=== PATIENT | female | born 1945 | race Caucasian/White ===

== ENCOUNTER 2022-08-16 19:01 | Inpatient (IN) | payer MEDICARE, SELFPAY ==
[2022-08-16] VITALS (19 sets, daily range): BP systolic 66–165; BP diastolic 37–133; PULSE 75–98; RESP 16–18; TEMP 36.4–36.6; O2SAT 92–97; BMI 30.2; BMI 32.4
--- NOTE | 2022-08-16 19:09 | CRLHL7_ITS ---
For Patients: As a result of the Century Cures Act, medical imaging exams and procedure reports are released immediately into your electronic medical record. You may view this report before your referring provider. If you have questions, please contact your health care provider. INDICATION: Neuro deficits. COMPARISON: None. TECHNIQUE: CT of the head without IV contrast. Coronal and sagittal reconstructions. FINDINGS: There is an age-indeterminate lacunar infarct in the right thalamus (series 3, image 28). No other evidence of acute infarct. No intracranial hemorrhage or abnormal extra-axial fluid collections. No mass effect or midline shift. Normal caliber ventricular system. Mild chronic small vessel ischemic disease. Physiologic basal ganglia calcification. Orbits and extraocular muscles are symmetric. The paranasal sinuses and mastoid air cells are clear. No acute fracture identified. Soft tissues are unremarkable. IMPRESSION: : 1. Age-indeterminate lacunar infarct in the right basal ganglia. This could be further evaluated with MRI. 2. Mild chronic small vessel ischemic disease. 3. Findings discussed with Jony Lr at 7:43 p.m. on 08/16/2022. Please note that all CT scans at this facility use dose modulation, iterative reconstruction, and/or weight-based dosing when appropriate to reduce radiation dose to as low as reasonably achievable. Dictated by Emily Calabrese MD @ 08/16/2022 7:36:26 PM (Electronically Signed)
--- NOTE | 2022-08-16 19:34 | ED_ITS ---
HPI - General Adult General Time Seen by Provider: 19:34 Date Seen: 08/16/22 Chief complaint: Neuro Symptoms/Altered Deficit Stated complaint: Balance Problem Time Seen by Provider: 08/16/22 19:10 Source: patient Mode of arrival: ambulatory Limitations: no limitations History of Present Illness HPI narrative: Patient is a 76-year-old female who is on insulin for diabetes and presents with some dizziness it started last night. She has a little bit lightheaded, has not been sick, no chest pain, no shortness of breath, no headache. Her had a cold. She denies any upper respiratory symptoms, no leg swelling, no edema in the legs no pain in the legs, no weakness focally. She is able to walk but feels a little dizzy at times. She has been eating and drinking adequately. Her blood sugars been reasonable she reports. her vital signs on presentation are unremarkable. As mentioned she denies pain. She was sent to CT because of her neuro complaints promptly and that is pending at this time Related Data Home Medications Medication Instructions Recorded Confirmed insulin glargine U-300 conc 300 unit subcut 08/16/22 unit/mL (1.5 mL) subcutaneous pen (Toujeo SoloStar U-300 Insulin) metformin 1,000 mg tablet 1,000 mg PO BIDWM 08/16/22 08/16/22 Previous Rx's Medication Instructions Recorded atorvastatin 20 mg tablet 20 mg PO .hs #90 tabs 05/29/22 levothyroxine 88 mcg tablet 88 mcg PO DAILY #90 tabs 06/11/22 Allergies Allergy/AdvReac Type Severity Reaction Status Date / Time No Known Drug Allergies Allergy Verified 08/16/22 21:20 Review of Systems Status of ROS: Reports: 10 or more systems reviewed and unremarkable except as noted in History and below [facility] Medical History (Updated 08/16/22 @ 21:39 by Ganesh Cannon MD) Diabetes mellitus Hypothyroidism Poorly controlled diabetes mellitus Surgical History (Updated 08/16/22 @ 21:23 by Ganesh Cannon MD) History of tonsillectomy Social History (Updated 08/16/22 @ 21:33 by Ganesh Cannon MD) Narrative: Patient lives independently with her . She reports no mobility problems normally. She does not smoke. She drinks alcohol about once a week. She has 2 children, 1 who lives nearby. She takes care of her 2-year-old granddaughter. His 2 grandchildren in high school and 2 in college. Her is healthcare power of criminal attorney. Code status is full. Both parents had heart disease. Mom also had cancer of unknown primary. Smoking Status: Never smoker How often do you have a drink containing alcohol: never AUDIT-C Alcohol total score: 0 Non-prescribed substance use: denies use Exam Narrative: Exam Narrative: Objective: Vital signs unremarkable and slightly elevated blood pressure HEENT is unremarkable no facial asymmetry mouth clear tongue protrudes midline neck supple nontender chest is clear heart rhythm regular heart murmur Abdomen benign soft nontender Pelvis stable Upper lower extremities normal strength sensation normal movement Negative nystagmus, pupils equal react to light Const: Vital Signs, click to edit/add: Vital Signs - 24 hr 08/16/22 19:08 08/16/22 20:41 08/16/22 19:24 Temperature 97.5 F L Pulse Rate 93 Pulse Rate [Right Pulse Oximeter] 98 Respiratory Rate 18 Blood Pressure Blood Pressure [Ri ght Upper Arm] 151/94 H Pulse Oximetry 96 95 94 Oxygen Delivery Me thod Room Air 08/16/22 19:25 08/16/22 19:30 08/16/22 19:31 Temperature Pulse Rate 89 90 93 Pulse Rate [Right Pulse Oximeter] Respiratory Rate Blood Pressure 163/133 H 145/102 H Blood Pressure [Ri ght Upper Arm] Pulse Oximetry 94 95 95 Oxygen Delivery Me thod 08/16/22 19:45 08/16/22 19:46 08/16/22 20:02 Temperature Pulse Rate 89 89 81 Pulse Rate [Right Pulse Oximeter] Respiratory Rate Blood Pressure 140/94 H Blood Pressure [Ri ght Upper Arm] Pulse Oximetry 92 93 94 Oxygen Delivery Me thod 08/16/22 20:03 08/16/22 20:04 08/16/22 20:15 Temperature Pulse Rate 86 85 85 Pulse Rate [Right Pulse Oximeter] Respiratory Rate Blood Pressure 66/37 L 165/104 H Blood Pressure [Ri ght Upper Arm] Pulse Oximetry 94 95 93 Oxygen Delivery Me thod 08/16/22 20:19 08/16/22 20:30 08/16/22 20:31 Temperature Pulse Rate 85 86 85 Pulse Rate [Right Pulse Oximeter] Respiratory Rate Blood Pressure 154/100 H Blood Pressure [Ri ght Upper Arm] Pulse Oximetry 94 93 92 Oxygen Delivery Me thod 08/16/22 20:45 08/16/22 20:46 Temperature Pulse Rate 87 80 Pulse Rate [Right Pulse Oximeter] Respiratory Rate Blood Pressure 150/91 H Blood Pressure [Ri ght Upper Arm] Pulse Oximetry 96 95 Oxygen Delivery Me thod Course Vital Signs Vital signs: Initial Vital Signs Temperature 97.5 F L 08/16/22 19:08 Temperature Source Temporal Artery Scan 08/16/22 19:08 Pulse Rate 98 08/16/22 19:08 Respiratory Rate 18 08/16/22 19:08 Blood Pressure 151/94 H 08/16/22 19:08 Blood Pressure Mean 113 08/16/22 19:08 Blood Pressure Position Sitting 08/16/22 19:08 Pulse Oximetry 96 08/16/22 19:08 Oxygen Delivery Method 08/16/22 19:08 Vital Signs Temperature 97.5 F L 08/16/22 19:08 Pulse Rate 98 08/16/22 19:08 Respiratory Rate 18 08/16/22 19:08 Blood Pressure 151/94 H 08/16/22 19:08 Pulse Oximetry 96 08/16/22 19:08 Oxygen Delivery Method 08/16/22 19:08 Temperature 97.9 F 08/16/22 22:23 Pulse Rate 80 08/16/22 22:23 Respiratory Rate 16 08/16/22 22:23 Blood Pressure 159/91 H 08/16/22 22:23 Pulse Oximetry 97 08/16/22 22:23 Oxygen Delivery Method 08/16/22 22:23 Medical Decision Making [facility] Narrative Medical decision making narrative: Patient presents with some dizziness. Will check the head CT, laboratory studies, will also run viral studies. IV fluid, IV Ativan. May have mild laby rinthitis, could have a colder viral infection, [employer] issue. Disposition pending findings above under clinical response Addendum: The patient has a thalamic infarct that is acute or subacute, could b e explaining her symptoms. Will discuss with Stroke Neurology at [facility]. For disposition planning. Addendum: Discussed with Stroke Neurology at [facility] who kindly recommended CT angio head neck common if that looks reasonable then started on Plavix and 81 mg aspirin and admit for echo, MRI MRA tomorrow would be recommended by the neurologist as well Lab Data Labs: Lab Results 08/16/22 08/16/22 08/16/22 Range/Units 19:18 19:18 19:18 WBC 9.00 (4.50-11.00) K/uL RBC 4.68 (4.00-5.20) m/uL Hgb 13.3 (12.0-16.0) gm/dL Hct 42.3 (33.0-51.0) % MCV 90 (80-100) fL MCH 28 (26-34) pg MCHC 31 L (32-36) gm/dL RDW Coeff of [place] 13.5 (11.5-15.5) % Plt Count 322 (140-440) K/uL Neut % (Auto) 56.4 (42.0-72.0) % Lymph % (Auto) 30.1 (20-44) % [place] % (Auto) 7.6 (0.0-11.0) % Eos % (Auto) 5.4 (0.0-7.0) % Baso % (Auto) 0.4 (0.0-3.0) % Neut # (Auto) 5.07 (1.7-7.0) K/uL Lymph # (Auto) 2.71 (0.90-2.90) K/uL [place] # (Auto) 0.70 (0.00-0.90) K/UL Eos # (Auto) 0.49 (0.00-0.50) K/uL Baso # (Auto) 0.04 (0.00-0.30) K/uL Abs Immat Gran (auto) 0.01 (0.00-0.30) K/uL Imm/Tot Granulo (auto) 0.1 % INR (0.91-1.10) Sodium 138 (135-149) mmol/L Potassium 4.3 (3.6-5.1) mmol/L Chloride 103 (96-114) mmol/L Carbon Dioxide 27 (20-32) mmol/L BUN 17 (7-30) mg/dL Creatinine 0.6 (0.5-1.5) mg/dL Estimated Creat Clear 36.68 Estimated GFR 94 ml/min Glucose 262 H (60-115) mg/dL Calcium 9.5 (8.4-10.6) mg/dL Total Bilirubin (0.1-1.5) mg/dL Direct Bilirubin (0.0-0.5) mg/dL AST (12-35) U/L ALT (4-35) U/L Alkaline Phosphatase (40-150) U/L Troponin I (0.01-0.04) ng/mL C-Reactive Protein < 0.5 L (0.5-1.0) mg/dL NT-Pro-B Natriuret Pep (0-450) PG/mL Total Protein (6.0-8.3) g/dL Albumin (3.3-5.0) g/dL Urine Color (Yellow) Urine Appearance (Clear) Urine pH (5.0-8.5) Ur Specific [place] (1.000-1.030) Urine Protein (Negative) Urine Glucose (UA) (Negative) Urine Ketones (Negative) Urine Blood (Negative) Urine Nitrite (Negative) Urine Bilirubin (Negative) Urine Urobilinogen (0.2-1.0) Ur Leukocyte Esterase (Negative) Urine RBC (0-2) Urine WBC (0-5) Ur Squamous Epith Cells (None-Few) Urine Bacteria (None) SARS-CoV-2 (PCR) Negative SARS-CoV-2 (Negative) Influenza Type A (PCR) Cancelled Influenza Type B (PCR) Cancelled RSV (PCR) Cancelled 08/16/22 08/16/22 08/16/22 Range/Units 19:18 19:18 21:18 WBC (4.50-11.00) K/uL RBC (4.00-5.20) m/uL Hgb (12.0-16.0) gm/dL Hct (33.0-51.0) % MCV (80-100) fL MCH (26-34) pg MCHC (32-36) gm/dL RDW Coeff of [place] (11.5-15.5) % Plt Count (140-440) K/uL Neut % (Auto) (42.0-72.0) % Lymph % (Auto) (20-44) % [place] % (Auto) (0.0-11.0) % Eos % (Auto) (0.0-7.0) % Baso % (Auto) (0.0-3.0) % Neut # (Auto) (1.7-7.0) K/uL Lymph # (Auto) (0.90-2.90) K/uL [place] # (Auto) (0.00-0.90) K/UL Eos # (Auto) (0.00-0.50) K/uL Baso # (Auto) (0.00-0.30) K/uL Abs Immat Gran (auto) (0.00-0.30) K/uL Imm/Tot Granulo (auto) % INR 0.94 (0.91-1.10) Sodium (135-149) mmol/L Potassium (3.6-5.1) mmol/L Chloride (96-114) mmol/L Carbon Dioxide (20-32) mmol/L BUN (7-30) mg/dL Creatinine (0.5-1.5) mg/dL Estimated Creat Clear Estimated GFR ml/min Glucose (60-115) mg/dL Calcium (8.4-10.6) mg/dL Total Bilirubin 0.4 (0.1-1.5) mg/dL Direct Bilirubin 0.2 (0.0-0.5) mg/dL AST 25 (12-35) U/L ALT 26 (4-35) U/L Alkaline Phosphatase 85 (40-150) U/L Troponin I < 0.01 L (0.01-0.04) ng/mL C-Reactive Protein (0.5-1.0) mg/dL NT-Pro-B Natriuret Pep 57 (0-450) PG/mL Total Protein 7.3 (6.0-8.3) g/dL Albumin 4.4 (3.3-5.0) g/dL Urine Color Yellow (Yellow) Urine Appearance Clear (Clear) Urine pH 5.5 (5.0-8.5) Ur Specific [place] 1.020 (1.000-1.030) Urine Protein Negative (Negative) Urine Glucose (UA) Trace A (Negative) Urine Ketones Negative (Negative) Urine Blood Negative (Negative) Urine Nitrite Positive A (Negative) Urine Bilirubin Negative (Negative) Urine Urobilinogen 0.2 (0.2-1.0) Ur Leukocyte Esterase Trace A (Negative) Urine RBC 0-2 (0-2) Urine WBC 5-10 A (0-5) Ur Squamous Epith Cells None (None-Few) Urine Bacteria Many A (None) SARS-CoV-2 (PCR) (Negative) Influenza Type A (PCR) Influenza Type B (PCR) RSV (PCR) Discharge Plan Discharge Clinical Impression: Dizziness Patient Disposition: Admitted As Inpatient
[2022-08-16 19:56] LABS: Basophils Absolute Auto 0.04 K/uL (0.00-0.30); Basophils Percent Auto 0.4 % (0.0-3.0); Eosinophils Absolute Auto 0.49 K/uL (0.00-0.50); Eosinophils Percent Auto 5.4 % (0.0-7.0); Hematocrit 42.3 % (33.0-51.0); Hemoglobin* 13.3 gm/dL (12.0-16.0); Immature Granulocytes Abs Auto 0.01 K/uL (0.00-0.30); Immature Granulocytes Pct Auto 0.1 %; Lymphocytes Absolute Auto 2.71 K/uL (0.90-2.90); Lymphocytes Percent Auto 30.1 % (20-44); Mean Corpuscular HGB Conc 31 gm/dL (32-36); Mean Corpuscular Hemoglobin 28 pg (26-34); Mean Corpuscular Volume 90 fL (80-100); Monocytes Percent Auto 7.6 % (0.0-11.0); Neutrophils Absolute Auto 5.07 K/uL (1.7-7.0); Neutrophils Percent Auto 56.4 % (42.0-72.0); Platelet Count* 322 K/uL (140-440); RDW Coefficient of Variation % 13.5 % (11.5-15.5); Red Blood Count 4.68 m/uL (4.00-5.20)
[2022-08-16 19:57] LABS: Slide Review Reflex No
[2022-08-16] MEDS: LORazepam 2 MG/ML inj 0.5 MG IVP (20:03)
[2022-08-16] MEDS: 0.9 % SODIUM CHLORIDE 500 ML 500 ML IV (20:04)
[2022-08-16 20:08] LABS: Albumin* 4.4 g/dL (3.3-5.0)
[2022-08-16 20:09] LABS: Chloride* 103 mmol/L (96-114); Potassium* 4.3 mmol/L (3.6-5.1); Sodium* 138 mmol/L (135-149)
[2022-08-16 20:11] LABS: Aspartate Amino Transferase* 25 U/L (12-35); Bilirubin Direct* 0.2 mg/dL (0.0-0.5); Bilirubin Total* 0.4 mg/dL (0.1-1.5); Total Protein* 7.3 g/dL (6.0-8.3)
[2022-08-16 20:12] LABS: Alanine Aminotransferase* 26 U/L (4-35); Creatinine* 0.6 mg/dL (0.5-1.5); Est. Creatinine Clearance* 36.68; Estimated Glomerular Filt Rate 94 ml/min; INR 0.94 (0.91-1.10); Prothrombin Time 13.2 Seconds
[2022-08-16 20:13] LABS: Alkaline Phosphatase* 85 U/L (40-150); Blood Urea Nitrogen* 17 mg/dL (7-30); Calcium* 9.5 mg/dL (8.4-10.6); Carbon Dioxide* 27 mmol/L (20-32); Glucose* 262 mg/dL (60-115)
[2022-08-16 20:20] LABS: C Reactive Protein* < 0.5 mg/dL (0.5-1.0)
[2022-08-16 20:21] LABS: NT Pro B Type NatriureticPept* 57 PG/mL (0-450)
[2022-08-16 20:24] LABS: Troponin I* < 0.01 ng/mL (0.01-0.04)
[2022-08-16 20:35] LABS: SARS PCR* Negative SARS-CoV-2 (Negative)
--- NOTE | 2022-08-16 20:44 | CRLHL7_ITS ---
For Patients: As a result of the Century Cures Act, medical imaging exams and procedure reports are released immediately into your electronic medical record. You may view this report before your referring provider. If you have questions, please contact your health care provider. DATE: 08/16/2022 CLINICAL HISTORY: Patient with focal neurological deficits. TECHNIQUE: Standard helical CT image acquisition of the neck up to the skull base after bolus intravenous contrast enhancement. Multiplanar reconstructed images performed on a separate workstation. COMPARISON: CT same day. FINDINGS: The origins of the great vessels from the aortic arch are patent. The origin of the right vertebral artery is patent. The origin of the left vertebral artery is patent. The common carotid arteries are patent. There is no stenosis at the origin of the right internal carotid artery. There is no stenosis at the origin of the left internal carotid artery. The rest of the cervical segments of the internal carotid arteries are patent up to the skull base, being patulous. The vertebral arteries are codominant. The cervical segments of the vertebral arteries are patent up to the skull base. The visualized lung apices are unremarkable. The thyroid gland is unremarkable. The soft tissues of the neck are unremarkable. There are degenerative changes in the cervical spine. IMPRESSION: Normal CT angiogram of the neck. Please note that all CT scans at this facility use dose modulation, iterative reconstruction, and/or weight-based dosing when appropriate to reduce radiation dose to as low as reasonably achievable. Dictated by Riley Thakur MD @ 08/16/2022 9:53:14 PM (Electronically Signed)
--- NOTE | 2022-08-16 20:44 | CRLHL7_ITS ---
For Patients: As a result of the Century Cures Act, medical imaging exams and procedure reports are released immediately into your electronic medical record. You may view this report before your referring provider. If you have questions, please contact your health care provider. DATE: 08/16/2022 CLINICAL HISTORY: Patient with focal neurological deficits. TECHNIQUE: Standard helical CT image acquisition through the intracranial circulation following intravenous administration of contrast material with bolus tracking. Multiplanar reconstructed images were performed and interpreted. COMPARISON: CT same day. FINDINGS: There is no cerebral aneurysm or large vessel occlusion. The right internal carotid artery is normal. The right middle cerebral artery and its branches are normal. The right anterior cerebral artery and its branches are normal. The left internal carotid artery is normal. The left middle cerebral artery and its branches are normal. The left anterior cerebral artery and its branches are normal. The anterior communicating artery is well visualized and appears normal. The right vertebral artery and PICA are normal. The left vertebral artery and PICA are normal. The vertebral arteries are codominant. The basilar artery is patent and appears normal. The right posterior cerebral artery is normal. The left posterior cerebral artery is normal. The visualized venous structures are patent. IMPRESSION: Normal CT angiogram of the head without intracranial aneurysm or other neurovascular abnormality. Please note that all CT scans at this facility use dose modulation, iterative reconstruction, and/or weight-based dosing when appropriate to reduce radiation dose to as low as reasonably achievable. Dictated by Riley Thakur MD @ 08/16/2022 9:51:01 PM (Electronically Signed)
--- NOTE | 2022-08-16 21:12 | P.IMHP_ITS ---
Hospitalist- H&P: HPI History of Present Illness Date Seen: 08/16/22 Chief complaint: Balance Problem Narrative: Jeanne Rosado is a left-handed 76 year old female with diabetes admitted through the emergency department with 1 day history of poor balance. Last evening around 9:00 p.m. she had onset of difficulty walking. She noted her balance is very poor and she had to hold onto furniture and the loco. She went to the bathroom and did have a fall in the bathroom but had no injury. She reports that she feels like her left hand is somewhat clumsy and she notes that her speech is halting. Her thinks she is slurring speech a little bit. She is otherwise feeling well. The problem persisted till today so she presents to the emergency room for evaluation. Here she also reports that she had trouble signing paperwork with her left hand. No previous history of stroke, atrial fibrillation, bleeding problems or clotting problems. She reports no recent illness, fever, head injury, shortness of breath, chest pain, abdominal pain, nausea, vomiting, diarrhea, constipation, melanotic or bloody stools. No urinary problems. Review of Systems Narrative: She reports doing well up until this episode occurred. She does have chronic upper respiratory symptoms including cough and congestion. She tells me he has been going on for months. I do note that in January she was rep orting the symptoms as well during a clinic visit. She has declined COVID vaccination. Complete review of systems otherwise unremarkable [facility] Medical History (Updated 08/16/22 @ 21:39 by Ganesh Cannon MD) Diabetes mellitus Hypothyroidism Poorly controlled diabetes mellitus Surgical History (Updated 08/16/22 @ 21:23 by Ganesh Cannon MD) History of tonsillectomy Social History (Updated 08/16/22 @ 21:33 by Ganesh Cannon MD) Narrative: Patient lives independently with her . She reports no mobility problems normally. She does not smoke. She drinks alcohol about once a week. She has 2 children, 1 who lives nearby. She takes care of her 2-year-old granddaughter. His 2 grandchildren in high school and 2 in college. Her is healthcare power of criminal defense attorney. Code status is full. Both parents had heart disease. Mom also had cancer of unknown primary. Smoking Status: Never smoker How often do you have a drink containing alcohol: never AUDIT-C Alcohol total score: 0 Non-prescribed substance use: denies use Meds Home Medications and Allergies Home Medications Medication Instructions Recorded Confirmed Type insulin glargine U-300 conc 300 unit subcut 08/16/22 History unit/mL (1.5 mL) subcutaneous pen (Toujeo SoloStar U-300 Insulin) metformin 1,000 mg tablet 1,000 mg PO BIDWM 08/16/22 08/16/22 History Allergies Allergy/AdvReac Type Severity Reaction Status Date / Time No Known Drug Allergies Allergy Verified 08/16/22 21:20 Exam Narrative: Exam Narrative: She is alert and appears in no distress. Her speech is fluent though slow. Is not obvious to me that she is slurring her speech. She is somewhat hard of hearing. She is oriented to her circumstances and gives appropriate answers to questions corroborated by her . Head is without apparent trauma. Eyes are normal. Visual ontiveros are intact. Extraocular movements are full. Pupils are equal round reactive to light. Oropharynx is normal. No facial asymmetry. Tongue is midline. Intact sensation in her face. Neck is supple without mass or adenopathy. No tenderness. Respirations are clear to auscultation. Good air exchange in all lung ontiveros. Cardiovascular: S1, S2, regular rate and rhythm. No murmur gallop or rub. Abdomen: Bowel sounds active. Abdomen is soft without tenderness or mass. Neuro extremities: 5/5 strength bilaterally in upper and lower extremities including shoulder flexion extension, elbow flexion extension, wrist flexion extension, finger extension and electrical prospector strength. Also including hip flexion, knee flexion extension, ankle dorsiflexion and p lantar flexion and great toe dorsiflexion. [id number] is somewhat slower and more clumsy on the left hand than the right. Rapid finger movements are relatively symmetric in both hands. Const: Vital Signs, click to edit/add: Vital Signs - 24 hr 08/16/22 19:08 08/16/22 20:41 08/16/22 19:24 Temperature 97.5 F L Pulse Rate 93 Pulse Rate [Right Pulse Oximeter] 98 Respiratory Rate 18 Blood Pressure Blood Pressure [Ri ght Upper Arm] 151/94 H Pulse Oximetry 96 95 94 Oxygen Delivery Me thod Room Air 08/16/22 19:25 08/16/22 19:30 08/16/22 19:31 Temperature Pulse Rate 89 90 93 Pulse Rate [Right Pulse Oximeter] Respiratory Rate Blood Pressure 163/133 H 145/102 H Blood Pressure [Ri ght Upper Arm] Pulse Oximetry 94 95 95 Oxygen Delivery Me thod 08/16/22 19:45 08/16/22 19:46 08/16/22 20:02 Temperature Pulse Rate 89 89 81 Pulse Rate [Right Pulse Oximeter] Respiratory Rate Blood Pressure 140/94 H Blood Pressure [Ri ght Upper Arm] Pulse Oximetry 92 93 94 Oxygen Delivery Me thod 08/16/22 20:03 08/16/22 20:04 08/16/22 20:15 Temperature Pulse Rate 86 85 85 Pulse Rate [Right Pulse Oximeter] Respiratory Rate Blood Pressure 66/37 L 165/104 H Blood Pressure [Ri ght Upper Arm] Pulse Oximetry 94 95 93 Oxygen Delivery Me thod 08/16/22 20:19 08/16/22 20:30 08/16/22 20:31 Temperature Pulse Rate 85 86 85 Pulse Rate [Right Pulse Oximeter] Respiratory Rate Blood Pressure 154/100 H Blood Pressure [Ri ght Upper Arm] Pulse Oximetry 94 93 92 Oxygen Delivery Me thod 08/16/22 20:45 08/16/22 20:46 Temperature Pulse Rate 87 80 Pulse Rate [Right Pulse Oximeter] Respiratory Rate Blood Pressure 150/91 H Blood Pressure [Ri ght Upper Arm] Pulse Oximetry 96 95 Oxygen Delivery Me thod Documenting provider has reviewed patient's vital signs: yes Hospitalist - H&P: Result Labs Labs: Short CBC 08/16/22 Range/Units 19:18 WBC 9.00 (4.50-11.00) K/uL Hgb 13.3 (12.0-16.0) gm/dL Hct 42.3 (33.0-51.0) % Plt Count 322 (140-440) K/uL BMP 08/16/22 19:18 Sodium 138 Potassium 4.3 Chloride 103 Carbon Dioxide 27 BUN 17 Creatinine 0.6 Glucose 262 H Calcium 9.5 Cardiac Enzymes 08/16/22 Range/Units 19:18 Troponin I < 0.01 L (0.01-0.04) ng/mL Liver Function 08/16/22 Range/Units 19:18 Total Bilirubin 0.4 (0.1-1.5) mg/dL Direct Bilirubin 0.2 (0.0-0.5) mg/dL AST 25 (12-35) U/L ALT 26 (4-35) U/L Alkaline Phosphatase 85 (40-150) U/L Albumin 4.4 (3.3-5.0) g/dL Assessment and Plan Assessment and plan (1) Stroke of right basal ganglia: Problem comment: Symptoms are consistent with right basal ganglia stroke with onset about [address] findings of indeterminate age. Obtain CTA and MRI. Cardiac monitoring for AFib. TTE for embolic source evaluation. Initiate aspirin. Continue management of diabetes and other chronic medical problems. Permissive hypertension. Status: Acute (2) Poorly controlled diabetes mellitus: Status: Acute Assessment and Plan: Admit to the hospital for evaluation and treatment of stroke, rehab. Total time spent today is 70 minutes, 50 minutes in coordination of care and discussing with patient, , other providers evaluation management of stroke
[2022-08-16 21:26] LABS: Appearance Urine Clear (Clear); Bilirubin Urine Negative (Negative); Blood Urine Negative (Negative); Color Urine Yellow (Yellow); Glucose Urine Trace (Negative); Ketones Urine Negative (Negative); Leukocyte Esterase Urine Trace (Negative); Nitrite Urine Positive (Negative); Protein Urine Negative (Negative); Urobilinogen Urine 0.2 (0.2-1.0); pH Urine 5.5 (5.0-8.5)
[2022-08-16 21:34] LABS: Bacteria Urine Many; RBC Urine 0-2 (0-2)
[2022-08-16] MEDS: ASPIRIN 81 MG TAB.CHEW 324 MG PO (22:04)
[2022-08-16] MEDS: ATORVASTATIN 10 MG TABLET 20 MG PO (22:04)
[2022-08-17] VITALS (7 sets, daily range): BP systolic 116–136; BP diastolic 76–89; PULSE 68–104; RESP 16–18; TEMP 36.6–37.2; O2SAT 92–95
--- NOTE | 2022-08-17 05:32 | PC.NURSE ---
Shift note: While assessing strength in bed all four extremities are equally strong. When pt gets up there is a left foot drop. She tends to move to the right, with no awareness of the things on the left side. Gait is extremely unsteady, assist of 1 with walker and belt. Pt needs frequent instructions for directions, instructions have to be direct and short, otherwise pt does not follow commands, or has a delay respond. RN needs to repeat questions/statements for pt to understand.
--- NOTE | 2022-08-17 07:00 | CRLHL7_ITS ---
For Patients: As a result of the Century Cures Act, medical imaging exams and procedure reports are released immediately into your electronic medical record. You may view this report before your referring provider. If you have questions, please contact your health care provider. Indication: Stroke. Technique: Multiplanar, multisequence MRI of the brain was performed without intravenous contrast. Comparison: CT head 08/16/2022. Findings: Mildly of the corpus callosum. Partly empty sella morphology. Clivus is intact. Mild degenerative change visualize upper cervical spine. There is an 11 mm focus of restricted diffusion involving the right thalamus. There is associated T2 FLAIR hyperintensity. The ventricles are proportionate to the cerebral sulci. The 4th ventricle appears midline. The basal cisterns appear patent. No abnormal extra-axial fluid collection identified. Mild parenchymal volume loss. Scattered T2 FLAIR hyperintense foci within the subcortical and periventricular white matter, favored to represent chronic ischemic microvascular disease. There is no intracranial mass, abnormal mass-effect or midline shift identified. Major intracranial vascular flow voids appear grossly intact. Both bilateral pseudophakia. Mild paranasal sinus mucosal disease. Impression: 1. Small acute/subacute right thalamic infarct. 2. Mild chronic ischemic microvascular disease. Dictated by Fredy Clark MD @ 08/17/2022 12:24:21 PM (Electronically Signed)
--- NOTE | 2022-08-17 08:56 | PM.IMPN1 ---
Progress Note: A&P Assessment and plan (1) Stroke of right basal ganglia: Problem details: Symptoms are consistent with right basal ganglia stroke with onset about [address] findings of indeterminate age. Status: Acute Assessment and Plan: MRI scheduled for today. TTE looking for embolic source scheduled today. No atrial fibrillation seen on telemetry, continue cardiac monitoring. Continue permissive hypertension for 72 hours total. PT and OT evaluations today. I have also ordered a speech evaluation due to facial droop and difficulty with tongue movement. (2) Dizziness: Status: Acute (3) Hyperlipidemia: Problem details: 03/26/2022 triglycerides 188, total cholesterol 183, LDL 96, HDL 49 Status: Chronic Assessment and Plan: Continue atorvastatin. (4) Ataxia due to acute cerebrovascular disease: Status: Acute (5) Poorly controlled diabetes mellitus: Problem details: Hemoglobin A1c 03/26/2022 is 10.2 Status: Acute (6) Diabetes mellitus: Problem details: Hemoglobin A1c 03/26/2022 is 10.2 Status: Chronic Assessment and Plan: Blood glucoses are close to inpatient goal of 140s to 180s. Continue long-acting insulin. Continue diabetic diet and insulin sliding scale. Plan VTE prophylaxis with nightly enoxaparin and Jeet's hose. Will avoid SCDs due to occasional confusion which may increase the risk of fall with SCDs. Disposition: Suspect she may need a brief stay at a intermediate facility for rehab. Await recommendations from PT and OT today. Subjective Time Seen by Provider: 08:13 Date Seen: 08/17/22 Interval history: Lindsey feels better this morning. She notes that she slept well. Nurse notes that Jeanne got up on her own to try to use the bathroom, but did need some assistance because she still has ataxia to the right and left footdrop. Left-sided neglect, confusion, and difficulty processing directions are better this morning. Exam Narrative: Exam Narrative: General: No acute distress. Awake, alert, oriented to self and place. No pallor. No jaundice. Oropharynx: Clear. Mucous membranes moist. Cardiovascular: Regular rate and rhythm. No murmurs, gallops, or rubs. Respiratory: Clear to auscultation bilaterally. No wheezes or crackles. Abdomen: Bowel sounds present. Soft, nondistended, nontender. Neuro: Left pronator drift is present. Gait is unsteady with ataxia to the right. Cranial nerves 2-12 are intact although she had some clumsiness initially with moving her tongue side to side, but then was able to make these movements smoothly 2nd time I asked her to do it. Tongue is midline. Extraocular movements are full. No nystagmus. Left lower facial droop is present. Peripheral vision and vision are grossly intact. Strength is 5/5 in all 4 extremities. DTRs intact and symmetric. Light touch sensation is intact in face body and extremities. Clumsiness with left [id number] test. No difficulty or clumsiness with right finger to nose test or bilateral heel to bonilla test. Const: Vital Signs, click to edit/add: Vital Signs - 24 hr 08/16/22 19:08 08/16/22 20:41 08/16/22 19:24 Temperature 97.5 F L Pulse Rate 93 Pulse Rate [Left P ulse Oximeter] Pulse Rate [Right Pulse Oximeter] 98 Respiratory Rate 18 Blood Pressure Blood Pressure [Le ft Arm] Blood Pressure [Ri ght Upper Arm] 151/94 H Pulse Oximetry 96 95 94 Oxygen Delivery Me od Room Air 08/16/22 19:25 08/16/22 19:30 08/16/22 19:31 Temperature Pulse Rate 89 90 93 Pulse Rate [Left P ulse Oximeter] Pulse Rate [Right Pulse Oximeter] Respiratory Rate Blood Pressure 163/133 H 145/102 H Blood Pressure [Le ft Arm] Blood Pressure [Ri ght Upper Arm] Pulse Oximetry 94 95 95 Oxygen Delivery Me thod 08/16/22 19:45 08/16/22 19:46 08/16/22 20:02 Temperature Pulse Rate 89 89 81 Pulse Rate [Left P ulse Oximeter] Pulse Rate [Right Pulse Oximeter] Respiratory Rate Blood Pressure 140/94 H Blood Pressure [Le ft Arm] Blood Pressure [Ri ght Upper Arm] Pulse Oximetry 92 93 94 Oxygen Delivery Me thod 08/16/22 20:03 08/16/22 20:04 08/16/22 20:15 Temperature Pulse Rate 86 85 85 Pulse Rate [Left P ulse Oximeter] Pulse Rate [Right Pulse Oximeter] Respiratory Rate Blood Pressure 66/37 L 165/104 H Blood Pressure [Le ft Arm] Blood Pressure [Ri ght Upper Arm] Pulse Oximetry 94 95 93 [facility] 08/16/22 20:19 08/16/22 20:30 08/16/22 20:31 Temperature Pulse Rate 85 86 85 Pulse Rate [Left P ulse Oximeter] Pulse Rate [Right Pulse Oximeter] Respiratory Rate Blood Pressure 154/100 H Blood Pressure [Le ft Arm] Blood Pressure [Ri ght Upper Arm] Pulse Oximetry 94 93 92 Oxygen Delivery Me thod 08/16/22 20:45 08/16/22 20:46 08/16/22 22:23 Temperature 97.9 F Pulse Rate 87 80 Pulse Rate [Left P ulse Oximeter] 80 Pulse Rate [Right Pulse Oximeter] Respiratory Rate 16 Blood Pressure 150/91 H Blood Pressure [Le ft Arm] 159/91 H Blood Pressure [Ri ght Upper Arm] Pulse Oximetry 96 95 97 Oxygen Delivery Me thod Room Air 08/16/22 23:00 08/16/22 23:00 08/17/22 03:00 Temperature 98 F 98.2 F Pulse Rate 79 Pulse Rate [Left P ulse Oximeter] 75 73 Pulse Rate [Right Pulse Oximeter] Respiratory Rate 16 18 Blood Pressure Blood Pressure [Le ft Arm] 145/88 H 134/83 Blood Pressure [Ri ght Upper Arm] Pulse Oximetry 94 94 Oxygen Delivery Me thod Room Air Room Air 08/17/22 07:00 Temperature Pulse Rate 68 Pulse Rate [Left P ulse Oximeter] Pulse Rate [Right Pulse Oximeter] Respiratory Rate Blood Pressure Blood Pressure [Le ft Arm] Blood Pressure [Ri ght Upper Arm] Pulse Oximetry Oxygen Delivery Me thod Documenting provider has reviewed patient's vital signs: yes Labs Labs: Laboratory Results - last 24 hr 08/16/22 08/16/22 08/16/22 19:18 19:18 19:18 WBC 9.00 RBC 4.68 Hgb 13.3 Hct 42.3 MCV 90 MCH 28 MCHC 31 L RDW Coeff of [place] 13.5 Plt Count 322 Neut % (Auto) 56.4 Lymph % (Auto) 30.1 Esmeralda % (Auto) 7.6 Eos % (Auto) 5.4 Baso % (Auto) 0.4 Neut # (Auto) 5.07 Lymph # (Auto) 2.71 Esmeralda # (Auto) 0.70 Eos # (Auto) 0.49 Baso # (Auto) 0.04 Abs Immat Gran (auto) 0.01 Imm/Tot Granulo (auto) 0.1 INR Sodium 138 Potassium 4.3 Chloride 103 Carbon Dioxide 27 BUN 17 Creatinine 0.6 Estimated Creat Clear 36.68 Estimated GFR 94 Glucose 262 H Calcium 9.5 Total Bilirubin Direct Bilirubin AST ALT Alkaline Phosphatase Troponin I C-Reactive Protein < 0.5 L NT-Pro-B Natriuret Pep Total Protein Albumin Urine Color Urine Appearance Urine pH Ur Specific [place] Urine Protein Urine Glucose (UA) Urine Ketones Urine Blood Urine Nitrite Urine Bilirubin Urine Urobilinogen Ur Leukocyte Esterase Urine RBC Urine WBC Ur Squamous Epith Cells Urine Bacteria SARS-CoV-2 (PCR) Negative SARS-CoV-2 Influenza Type A (PCR) Cancelled Influenza Type B (PCR) Cancelled RSV (PCR) Cancelled 08/16/22 08/16/22 08/16/22 19:18 19:18 21:18 WBC RBC Hgb Hct MCV MCH MCHC RDW Coeff of [place] Plt Count Neut % (Auto) Lymph % (Auto) Esmeralda % (Auto) Eos % (Auto) Baso % (Auto) Neut # (Auto) Lymph # (Auto) Esmeralda # (Auto) Eos # (Auto) Baso # (Auto) Abs Immat Gran (auto) Imm/Tot Granulo (auto) INR 0.94 Sodium Potassium Chloride Carbon Dioxide BUN Creatinine Estimated Creat Clear Estimated GFR Glucose Calcium Total Bilirubin 0.4 Direct Bilirubin 0.2 AST 25 ALT 26 Alkaline Phosphatase 85 Troponin I < 0.01 L C-Reactive Protein NT-Pro-B Natriuret Pep 57 Total Protein 7.3 Albumin 4.4 Urine Color Yellow Urine Appearance Clear Urine pH 5.5 Ur Specific [place] 1.020 Urine Protein Negative Urine Glucose (UA) Trace A Urine Ketones Negative Urine Blood Negative Urine Nitrite Positive A Urine Bilirubin Negative Urine Urobilinogen 0.2 Ur Leukocyte Esterase Trace A Urine RBC 0-2 Urine WBC 5-10 A Ur Squamous Epith Cells None Urine Bacteria Many A SARS-CoV-2 (PCR) Influenza Type A (PCR) Influenza Type B (PCR) RSV (PCR) Ordering Physician: Jade Betancourt MD Date of Service: 08/16/22 Procedure(s): CT head/brain wo con Accession Number(s): [id number] cc: Jade Betancourt MD; Isabella Bacon M.D.~ For Patients: As a result of the Cures Act, medical imaging exams and procedure reports are released immediately into your electronic medical record. You may view this report before your referring provider. If you have questions, please contact your health care provider. INDICATION: Neuro deficits. COMPARISON: None. TECHNIQUE: CT of the head without IV contrast. Coronal and sagittal reconstructions. FINDINGS: There is an age-indeterminate lacunar infarct in the right thalamus (series 3, image 28). No other evidence of acute infarct. No intracranial hemorrhage or abnormal extra-axial fluid collections. No mass effect or midline shift. Normal caliber ventricular system. Mild chronic small vessel ischemic disease. Physiologic basal ganglia calcification. Orbits and extraocular muscles are symmetric. The paranasal sinuses and mastoid air cells are clear. No acute fracture identified. Soft tissues are unremarkable. IMPRESSION: : 1. Age-indeterminate lacunar infarct in the right basal ganglia. This could be further evaluated with MRI. 2. Mild chronic small vessel ischemic disease. 3. Findings discussed with Jony Lr at 7:43 p.m. on 08/16/2022. Please note that all CT scans at this facility use dose modulation, iterative reconstruction, and/or weight-based dosing when appropriate to reduce radiation dose to as low as reasonably achievable. Dictated by Emily Calabrese MD @ 08/16/2022 7:36:26 PM (Electronically Signed) Ordering Physician: Jony Lr M.D. Date of Service: 08/16/22 Procedure(s): CT angio head Accession Number(s): [id number] cc: Jony Lr M.D.; Isabella Bacon M.D.~ For Patients: As a result of the Cures Act, medical imaging exams and procedure reports are released immediately into your electronic medical record. You may view this report before your referring provider. If you have questions, please contact your health care provider. DATE: 08/16/2022 CLINICAL HISTORY: Patient with focal neurological deficits. TECHNIQUE: Standard helical CT image acquisition through the intracranial circulation following intravenous administration of contrast material with bolus tracking. Multiplanar reconstructed images were performed and interpreted. COMPARISON: CT same day. FINDINGS: There is no cerebral aneurysm or large vessel occlusion. The right internal carotid artery is normal. The right middle cerebral artery and its branches are normal. The right anterior cerebral artery and its branches are normal. The left internal carotid artery is normal. The left middle cerebral artery and its branches are normal. The left anterior cerebral artery and its branches are normal. The anterior communicating artery is well visualized and appears normal. The right vertebral artery and PICA are normal. The left vertebral artery and PICA are normal. The vertebral arteries are codominant. The basilar artery is patent and appears normal. The right posterior cerebral artery is normal. The left posterior cerebral artery is normal. The visualized venous structures are patent. IMPRESSION: Normal CT angiogram of the head without intracranial aneurysm or other neurovascular abnormality. Please note that all CT scans at this facility use dose modulation, iterative reconstruction, and/or weight-based dosing when appropriate to reduce radiation dose to as low as reasonably achievable. Dictated by Riley Thakur MD @ 08/16/2022 9:51:01 PM (Electronically Signed) Ordering Physician: Jony Lr M.D. Date of Service: 08/16/22 Procedure(s): CT angio neck Accession Number(s): [id number] cc: Jony Lr M.D.; Isabella Bacon M.D.~ For Patients: As a result of the Cures Act, medical imaging exams and procedure reports are released immediately into your electronic medical record. You may view this report before your referring provider. If you have questions, please contact your health care provider. DATE: 08/16/2022 CLINICAL HISTORY: Patient with focal neurological deficits. TECHNIQUE: Standard helical CT image acquisition of the neck up to the skull base after bolus intravenous contrast enhancement. Multiplanar reconstructed images performed on a separate workstation. COMPARISON: CT same day. FINDINGS: The origins of the great vessels from the aortic arch are patent. The origin of the right vertebral artery is patent. The origin of the left vertebral artery is patent. The common carotid arteries are patent. There is no stenosis at the origin of the right internal carotid artery. There is no stenosis at the origin of the left internal carotid artery. The rest of the cervical segments of the internal carotid arteries are patent up to the skull base, being patulous. The vertebral arteries are codominant. The cervical segments of the vertebral arteries are patent up to the skull base. The visualized lung apices are unremarkable. The thyroid gland is unremarkable. The soft tissues of the neck are unremarkable. There are degenerative changes in the cervical spine. IMPRESSION: Normal CT angiogram of the neck. Please note that all CT scans at this facility use dose modulation, iterative reconstruction, and/or weight-based dosing when appropriate to reduce radiation dose to as low as reasonably achievable. Dictated by Riley Thakur MD @ 08/16/2022 9:53:14 PM (Electronically Signed)
[2022-08-17] MEDS: ASPIRIN 81 MG TABLET EC PO (08:57)
[2022-08-17] MEDS: METFORMIN 1,000 MG TABLET 1000 MG PO ×2 (08:57→17:51)
[2022-08-17] MEDS: LEVOTHYROXINE 88 MCG TABLET PO (08:57)
--- NOTE | 2022-08-17 11:50 | PC.NURSE ---
Pt evaluated by Dr. Winter and myself this am. Pt evaluated by Dinorah for risk of swallowing issues at [facility]. PT eval and OT eval completed. Pt taken for MRI at 11:00 am via w/c. RN updated pt's spouse via phone on his 's status. BG prior to bkfst 101, no SS insulin required. Please see eMar for medications given during am med pass. Continue POC for post ischemic stroke. Plan echocardiogram later this afternoon.
--- NOTE | 2022-08-17 12:22 | PC.NURSE ---
Care of this patient transferred to Rin Dorsey RN. BG [phone] prior to lunch.
--- NOTE | 2022-08-17 14:34 | PC.SOCIAL ---
Met with pt. and spouse to discuss discharge plans. PT, OT, and speech therapy all think pt. would benefit from an acute rehab stay. Discussed there was acute rehab options at [facility], [facility], and [place]. Pt. an spouse would like to look at [facility], and [facility] for acute rehab. A message was left with Paul Toure/ @ [phone], fax# [phone] and pt.'s information was sent to [facility]. Pt.'s other information was also sent to [facility] at [phone], .
--- NOTE | 2022-08-17 15:38 | PC.NURSE ---
shift note: pt tolerating regular diet. pt denies pain.
[2022-08-17] MEDS: ACETAMINOPHEN 325 MG TABLET 650 MG PO ×2 (15:59→22:04)
[2022-08-17] MEDS: ATORVASTATIN 10 MG TABLET 20 MG PO (20:58)
[2022-08-17] MEDS: SODIUM CHLORIDE 0.9 % (FLUSH) 10 ML SYRINGE 5 ML IVF (20:58)
[2022-08-17] MEDS: ENOXAPARIN 40 MG/0.4 ML INJ SUBCUT (20:58)
--- NOTE | 2022-08-17 22:21 | PC.NURSE ---
End of Shift: Patient pleasant and cooperative. Afebrile. Up to chair and bathroom with 1-2 assist, walker and gait belt. Unsteady gait. Tolerating regular diet with no nausea. C/o headache 2-5/10 and PRN Tylenol given x2, updated MD. Tele showing NSR with a 1st degree heart block.
[2022-08-18 03:00] VITALS: BP 150/83; PULSE 76; RESP 16; TEMP 36.6; O2SAT 92
--- NOTE | 2022-08-18 05:20 | PC.NURSE ---
Shift note: Pt's condition stable. No new s/s noted except general weakness. V/s WNL. Pt has been sleeping very well, denied any pain or discomfort such as dizziness or headache.Tolerate regular diet very well.
[2022-08-18] MEDS: LEVOTHYROXINE 88 MCG TABLET PO (06:37)
[2022-08-18 07:00] VITALS: BP 126/89; PULSE 82; PULSE 87; RESP 16; TEMP 36.9; O2SAT 93
[2022-08-18] MEDS: ASPIRIN 81 MG TABLET EC PO (08:51)
[2022-08-18] MEDS: METFORMIN 1,000 MG TABLET 1000 MG PO ×2 (08:51→17:18)
[2022-08-18] MEDS: CLOPIDOGREL 75 MG TABLET PO (08:51)
[2022-08-18 11:00] VITALS: BP 150/62; PULSE 68; RESP 16; TEMP 36.6; O2SAT 96
--- NOTE | 2022-08-18 12:15 | REH.OT ---
OT ADL assesment; Pt currently requires Min Ax1 for safe toileting, specifically with clothing management as she has had LOB x3 today due to leaning to the L side unknowingly and unable to self correct. Pt is SBA for standing grooming tasks at sink but requires frequent physical/verbal cues to return to midline as she leans to the L and lacks self awareness.. Pt has difficulty with dynamic sitting balance without supports (EOB) and requires Min Ax1 to remain upright due to L sided and backward leaning when BUE are unable to support posture. Pt is able to complete UE/ partial LE dressing while seated in recliner but requires SBA and verbal cues when standing to pull pants up to prevent LOB. Pt would benefit from continued rehab services to work on balance during toileting and ADL completion to prevent falls and further injury.
--- NOTE | 2022-08-18 13:25 | PM.IMPN1 ---
Progress Note: A&P Assessment and plan (1) Stroke of right basal ganglia: Problem details: acute/subacute right thalamic stroke on MRI 08/17/2022. Stroke neurology ([place]) recommended lifelong baby aspirin daily and 30 days of Plavix Status: Acute Assessment and Plan: Aspirin and plavix as above. Continue statin. TTE done yesterday. Continue permissive hypertension for 72 hours total. Does not have known h/o HTN, but suspect this is present and may need to start antihypertensive as an outpatient. Continue PT/OT and speech therapy. (2) Dizziness: Problem details: secondary to stroke Status: Acute (3) Hyperlipidemia: Problem details: 03/26/2022 triglycerides 188, total cholesterol 183, LDL 96, HDL 49 Status: Chronic Assessment and Plan: Continue atorvastatin. (4) Ataxia due to acute cerebrovascular disease: Status: Acute Assessment and Plan: PT/OT (5) Poorly controlled diabetes mellitus: Problem details: Hemoglobin A1c 03/26/2022 is 10.2 Status: Acute (6) Diabetes mellitus: Problem details: Hemoglobin A1c 03/26/2022 is 10.2 Status: Chronic Assessment and Plan: Blood glucoses are close to inpatient goal of 140s to 180s. Continue long-acting insulin. Continue diabetic diet and insulin sliding scale. (7) UTI (urinary tract infection): Problem details: Specimen: [id number] COMP Collected: 08/16/22 Received: 08/16/22 Source: Urine CC Sp Descrip: Sub Dr: Jony Lr M.D. Other Dr: Procedure Result Site Urine Culture Final ML Organism 1 Escherichia coli Ur [place] Count >100,000 CFU/ml E coli PACO RX --------- --- Ampicillin >=32 R Ampicillin/Sulbactam >=32 R Cefazolin 16 S Cefepime <=1 S Cefoxitin <=4 S Ceftazidime <=1 S Ceftriaxone <=1 S Ciprofloxacin <=0.25 S Ertapenem <=0.5 S Gentamicin <=1 S Imipenem <=0.25 S Levofloxacin <=0.12 S Nitrofurantoin <=16 S Tobramycin <=1 S Trimethoprim/Sulfamethoxazole <=20 S Piperacillin/Tazobactam 16 S Status: Acute Assessment and Plan: Start 3 days of ciprofloxacin Plan VTE prophylaxis with nightly enoxaparin and Jeet's hose. Will avoid SCDs due to occasional confusion which may increase the risk of fall with SCDs. Disposition: Needs rehab. No outpatient rehab available for >2 weeks. No SNF available at this time. No safe discharge option. Subjective Time Seen by Provider: 08:10 Date Seen: 08/18/22 Interval history: Lindsey feels well this morning. She has no complaints. Denies pain. Exam Narrative: Exam Narrative: General: No acute distress. Awake, alert, oriented x 3. No pallor. No jaundice. Cardiovascular: Regular rate and rhythm. No murmurs, gallops, or rubs. Respiratory: Clear to auscultation bilaterally. No wheezes or crackles. Abdomen: Bowel sounds present. Soft, nondistended, nontender. Neuro: Left lower facial droop and clumsiness with left [id number]-pidy are persistent. Const: Vital Signs, click to edit/add: Vital Signs - 24 hr 08/17/22 15:00 08/17/22 15:00 08/17/22 15:00 Temperature 98.6 F Pulse Rate 104 H Pulse Rate [Left P ulse Oximeter] 97 97 Respiratory Rate 16 16 Blood Pressure [Le ft Arm] 128/89 Pulse Oximetry 93 Oxygen Delivery Me thod Room Air 08/17/22 19:00 08/17/22 23:00 08/17/22 23:00 Temperature 98.9 F Pulse Rate 74 Pulse Rate [Left P ulse Oximeter] 94 85 Respiratory Rate 16 16 Blood Pressure [Le ft Arm] 116/88 Pulse Oximetry 93 Oxygen Delivery Me thod Room Air 08/17/22 23:00 08/18/22 03:00 08/18/22 07:00 Temperature 97.9 F 98 F Pulse Rate 82 Pulse Rate [Left P ulse Oximeter] 85 76 Respiratory Rate 16 16 Blood Pressure [Le ft Arm] 136/87 150/83 H Pulse Oximetry 92 92 Oxygen Delivery Me thod Room Air Room Air 08/18/22 07:00 08/18/22 11:00 Temperature 98.4 F 97.8 F Pulse Rate Pulse Rate [Left P ulse Oximeter] 87 68 Respiratory Rate 16 16 Blood Pressure [Le ft Arm] 126/89 150/62 H Pulse Oximetry 93 96 Oxygen Delivery Me thod Room Air Room Air Documenting provider has reviewed patient's vital signs: yes Labs Labs: Specimen: [id number] COMP Collected: 08/16/22 Received: 08/16/22 Source: Urine CC Sp Descrip: Sub Dr: Jony Lr M.D. Other Dr: Procedure Result Site Urine Culture Final ML Organism 1 Escherichia coli Ur [place] Count >100,000 CFU/ml E coli PACO RX --------- --- Ampicillin >=32 R Ampicillin/Sulbactam >=32 R Cefazolin 16 S Cefepime <=1 S Cefoxitin <=4 S Ceftazidime <=1 S Ceftriaxone <=1 S Ciprofloxacin <=0.25 S Ertapenem <=0.5 S Gentamicin <=1 S Imipenem <=0.25 S Levofloxacin <=0.12 S Nitrofurantoin <=16 S Tobramycin <=1 S Trimethoprim/Sulfamethoxazole <=20 S Piperacillin/Tazobactam 16 S
--- NOTE | 2022-08-18 14:25 | PC.SOCIAL ---
Pt. was declined by [facility] but accepted to [facility] in [place] pending insurance authorization for tomorrow. Pt. and spouse Tegan@ [phone] have been updated and spouse Tegan with transport and arrive at 12:30 for pt. to leave by 1pm. Nurse to nurse report will be at [phone]
[2022-08-18 15:00] VITALS: BP 137/104; PULSE 104; PULSE 105; RESP 18; TEMP 36.6; O2SAT 96
[2022-08-18] MEDS: CIPROFLOXACIN 250 MG TABLET PO ×2 (17:17→21:19)
[2022-08-18 19:00] VITALS: BP 138/89; PULSE 109; RESP 18; TEMP 36.9; O2SAT 93
--- NOTE | 2022-08-18 19:09 | PC.NURSE ---
shift note: pt up 1/walker. pt has weakness to lt l/e when ambulating or transferring. Pt has difficulty picking up pills with lt fingers. Pt having word finding and delay in conversation. vss stable. IV dc'd due to tenderness. tele reading 1 degree block. pt denies pain.
[2022-08-18] MEDS: ENOXAPARIN 40 MG/0.4 ML INJ SUBCUT (21:19)
[2022-08-18] MEDS: ATORVASTATIN 10 MG TABLET 20 MG PO (21:19)
[2022-08-18 23:00] VITALS: BP 152/91; PULSE 98; RESP 16; TEMP 36.9; O2SAT 93
[2022-08-19 02:50] VITALS: BP 159/116; PULSE 95; RESP 18; TEMP 36.6; O2SAT 94
[2022-08-19 03:00] VITALS: BP 159/116; PULSE 107; RESP 20; TEMP 36.7; O2SAT 93
[2022-08-19] MEDS: LEVOTHYROXINE 88 MCG TABLET PO (06:57)
[2022-08-19 07:00] VITALS: BP 141/81; PULSE 82; PULSE 97; RESP 18; RESP 24; TEMP 36.9; O2SAT 92
--- NOTE | 2022-08-19 07:02 | PC.NURSE ---
[id number]: Patient pleasant and cooperative. A&Ox3. Denies pain. Denies N/V. A1,walker,GB. Leans slightly to the left when ambulating. Equal strength to all extremities. 2 daughters in to visit last night.
[2022-08-19] MEDS: ASPIRIN 81 MG TABLET EC PO (08:29)
[2022-08-19] MEDS: METFORMIN 1,000 MG TABLET 1000 MG PO (08:29)
[2022-08-19] MEDS: CIPROFLOXACIN 250 MG TABLET PO (08:29)
[2022-08-19] MEDS: CLOPIDOGREL 75 MG TABLET PO (08:29)
--- NOTE | 2022-08-19 08:30 | P.DS_ITS ---
DS: Providers Provider Time Seen by Provider: 09:00 Date Seen: 08/19/22 Date of admission: 08/16/22 21:34 Primary care physician: Isabella Bacon Admitting Clinician: Ganesh Cannon MD Consults: 08/16/22 20:58 Consult to Physical Therapy [CONS] Routine Comment: Reason(s) for PT Consult:: Evaluate Ambulation Any Restrictions?:: No Restrictions 08/16/22 21:00 Consult to Occupational Therapy [CONS] Routine Comment: Reason(s) for OT Consult:: Evaluate and Treat Any Restrictions?:: No Restrictions 08/17/22 08:48 Consult to Speech Therapy [CONS] Routine Comment: Reason(s) for Speech Consult:: Speech/Swallowing Eval Attending Physician on discharge: Nata Winter MD Date of Discharge: 08/19/22 DS: Diagnosis Discharge Diagnosis (1) Stroke of right basal ganglia: Status: Acute Problem details: acute/subacute right thalamic stroke on MRI 08/17/2022. Stroke neurology ([facility]) recommended lifelong baby aspirin daily and 30 days of Plavix (2) Ataxia due to acute cerebrovascular disease: Status: Acute (3) Hypertension: Status: Acute Problem details: Starting metoprolol 08/19/2022 (hypertension plus sinus tachycardia). >72 hours out from stroke now. (4) Long QT interval: Status: Acute Problem details: Suspect secondary to Cipro. 08/16/2022 QTC 366 milliseconds. Cipro started 08/18/2022. 08/19/2022 QTC 448 milliseconds. Cipro discontinued 08/19/2022. (5) Sinus tachycardia: Status: Acute Problem details: EKG done 08/19/2022. Feeling well, UTI being treated, no other infection, no bleeding, euvolemic. Starting metoprolol for hypertension. (6) UTI (urinary tract infection): Status: Acute Problem details: Asymptomatic bacteremia. Cipro was started on 08/18/2022 and she received a total of 3 doses. Unfortunately she developed prolonged QTC and sinus tachycardia, so Cipro has been discontinued. If she becomes symptomatic with symptoms of UTI, will need UA/UC. Specimen: [id number] COMP Collected: 08/16/22 Received: 08/16/22 Source: Urine CC Sp Descrip: Sub Dr: Jony Lr M.D. Other Dr: Procedure Result Site Urine Culture Final ML Organism 1 Escherichia coli Ur [place] Count >100,000 CFU/ml E coli PACO RX --------- --- Ampicillin >=32 R Ampicillin/Sulbactam >=32 R Cefazolin 16 S Cefepime <=1 S Cefoxitin <=4 S Ceftazidime <=1 S Ceftriaxone <=1 S Ciprofloxacin <=0.25 S Ertapenem <=0.5 S Gentamicin <=1 S Imipenem <=0.25 S Levofloxacin <=0.12 S Nitrofurantoin <=16 S Tobramycin <=1 S Trimethoprim/Sulfamethoxazole <=20 S Piperacillin/Tazobactam 16 S (7) Poorly controlled diabetes mellitus: Status: Acute Problem details: Hemoglobin A1c 03/26/2022 is 10.2 (8) Diabetes mellitus: Status: Chronic Problem details: Hemoglobin A1c 03/26/2022 is 10.2 (9) Dizziness: Status: Acute Problem details: secondary to stroke (10) Hyperlipidemia: Status: Chronic Problem details: 03/26/2022 triglycerides 188, total cholesterol 183, LDL 96, HDL 49 DS: Summary Hospital Course Hospital Course: This is a 77-year-old female with history of diabetes who was admitted through the emergency department for 1 day of ataxia. This started in the evening around 9:00 p.m. where she noticed her balance was suddenly poor and she had to hold onto the furniture or loco to get around. She went to the bathroom and fe ll but had no injury. She also noted clumsiness of her left hand, difficulty signing papers with that hand, and that she was having some difficulty with speech. Her noted that her speech was slurred. The problem persisted and the next day she presented to the emergency department. She has no previous history of hypertension, stroke, atrial fibrillation, bleeding or clotting problems. She was found to have a stroke of the right basal ganglia and admitted to the hospital. MRI confirmed an acute/subacute right thalamic stroke. I spoke with stroke Neurology at [facility] on 08/18/2022. The neurologist recommended lifelong baby aspirin and 30 days of Plavix. She started that in the hospital. Statin that she is on at home was also continued. She had an echocardiogram done. Results are below. Her urine culture from admission grew out greater than 100,000 colony-forming units of E coli and she was started on 3 days of ciprofloxacin. Notably this is asymptomatic. She started having sinus tachycardia, confirmed by EKG, and EKG also showed a QT that was longer than the EKG she had on admission. Ciprofloxacin has been stopped. Again the patient is asymptomatic with a bacturia, so the decision was made to not treat with further antibiotics at this time. If she becomes symptomatic, a repeat urinalysis and culture could be obtained and treated accordingly. She had physi ritchie therapy, occupational therapy, and speech therapy evaluations. Due to persistent ataxia and the lack of availability of outpatient PT and OT and a timely manner, recommendation was made for her to have an acute rehab stay. She is transferred there today in stable condition. She did become progressively more hypertensive during the hospitalization. When she was 72 hours out from her stroke, she no longer needed permissive hypertension and was started on metoprolol for sinus tachycardia and elevated blood pressures. She will continue on this indefinitely. Status at Discharge Functional status at discharge: uses cane/walker Overall status at discharge: patient is progressing back to baseline Time Spent with Patient Time attestation: Total time spent providing and/or coordinating discharge services: Exam Narrative: Exam Narrative: General: No acute distress. Awake, alert, oriented x 3. No pallor. No jaundice. Cardiovascular: Regular rate and rhythm. No murmurs, gallops, or rubs. Respiratory: Clear to auscultation bilaterally. No wheezes or crackles. Abdomen: Bowel sounds present. Soft, nondistended, nontender. Neuro: Left lower facial droop improving; clumsiness with left [id number] is also improving. Const: Vital Signs, click to edit/add: Vital Signs - 24 hr 08/18/22 11:00 08/18/22 15:00 08/18/22 15:00 Temperature 97.8 F 97.8 F Pulse Rate Pulse Rate [Left P ulse Oximeter] 68 105 H 105 H Respiratory Rate 16 18 18 Blood Pressure [Le ft Arm] 150/62 H 137/104 H Pulse Oximetry 96 96 Oxygen Delivery Me thod Room Air Room Air 08/18/22 15:00 08/18/22 19:00 08/18/22 23:00 Temperature 98.4 F 98.4 F Pulse Rate 104 H Pulse Rate [Left P ulse Oximeter] 109 H 98 Respiratory Rate 18 16 Blood Pressure [Le ft Arm] 138/89 152/91 H Pulse Oximetry 93 93 Oxygen Delivery Me thod Room Air Room Air 08/19/22 02:50 08/19/22 03:00 Temperature 98 F 98.1 F Pulse Rate Pulse Rate [Left P ulse Oximeter] 95 107 H Respiratory Rate 18 20 Blood Pressure [Le ft Arm] 159/116 H 159/116 H Pulse Oximetry 94 93 Oxygen Delivery Me thod Room Air Room Air Documenting provider has reviewed patient's vital signs: yes DS: Data Data Completed and Pending Completed studies during hospitalization: 08/16/2022 7:43 p.m. EKG: Sinus rhythm with first-degree AV block, heart rate 87 beats per minute, left axis deviation, possible anterolateral infarct, age undetermined. 08/19/2022 9:38 a.m. EKG: Sinus tachycardia with first-degree AV block, heart rate 103 beats per minute. Left anterior fascicular block, cannot rule out inferior infarct mass by fascicular block, age undetermined. Anterolateral infarct, age undetermined. Prolonged QT. QT interval is 448 milliseconds. 08/17/2022 echocardiogram: Normal LV size, borderline wall thickness with basal septal prominence, normal global systolic function with estimated EF 60 to 65%. Right ventricular cavity size is normal, global systolic RV function is normal. The aortic valve is trileaflet and sclerotic, no stenosis and mild regurgitation. The mitral valve is sclerotic, trace mitral regurgitation. Ordering Physician: Jade Betancourt MD Date of Service: 08/16/22 Procedure(s): CT head/brain wo [facility] Accession Number(s): [id number] cc: Jade Betancourt MD; Isabella Bacon M.D.~ For Patients: As a result of the 21st Century Cures Act, medical imaging exams and procedure reports are released immediately into your electronic medical record. You may view this report before your referring provider. If you have questions, please contact your health care provider. INDICATION: Neuro deficits. COMPARISON: None. TECHNIQUE: CT of the head without IV contrast. Coronal and sagittal reconstructions. FINDINGS: There is an age-indeterminate lacunar infarct in the right thalamus (series 3, image 28). No other evidence of acute infarct. No intracranial hemorrhage or abnormal extra-axial fluid collections. No mass effect or midline shift. Normal caliber ventricular system. Mild chronic small vessel ischemic disease. Physiologic basal ganglia calcification. Orbits and extraocular muscles are symmetric. The paranasal sinuses and mastoid air cells are clear. No acute fracture identified. Soft tissues are unremarkable. IMPRESSION: : 1. Age-indeterminate lacunar infarct in the right basal ganglia. This could be further evaluated with MRI. 2. Mild chronic small vessel ischemic disease. 3. Findings discussed with Jony Lr at 7:43 p.m. on 08/16/2022. Please note that all CT scans at this facility use dose modulation, iterative reconstruction, and/or weight-based dosing when appropriate to reduce radiation dose to as low as reasonably achievable. Dictated by Emily Calabrese MD @ 08/16/2022 7:36:26 PM (Electronically Signed) Ordering Physician: Jony Lr M.D. Date of Service: 08/16/22 Procedure(s): CT angio head Accession Number(s): [id number] cc: Jony Lr M.D.; Isabella Bacon M.D.~ For Patients: As a result of the Cures Act, medical imaging exams and procedure reports are released immediately into your electronic medical record. You may view this report before your referring provider. If you have questions, please contact your health care provider. DATE: 08/16/2022 CLINICAL HISTORY: Patient with focal neurological deficits. TECHNIQUE: Standard helical CT image acquisition through the intracranial circulation following intravenous administration of contrast material with bolus tracking. Multiplanar reconstructed images were performed and interpreted. COMPARISON: CT same day. FINDINGS: There is no cerebral aneurysm or large vessel occlusion. The right internal carotid artery is normal. The right middle cerebral artery and its branches are normal. The right anterior cerebral artery and its branches are normal. The left internal carotid artery is normal. The left middle cerebral artery and its branches are normal. The left anterior cerebral artery and its branches are normal. The anterior communicating artery is well visualized and appears normal. The right vertebral artery and PICA are normal. The left vertebral artery and PICA are normal. The vertebral arteries are codominant. The basilar artery is patent and appears normal. The right posterior cerebral artery is normal. The left posterior cerebral artery is normal. The visualized venous structures are patent. IMPRESSION: Normal CT angiogram of the head without intracranial aneurysm or other neurovascular abnormality. Please note that all CT scans at this facility use dose modulation, iterative reconstruction, and/or weight-based dosing when appropriate to reduce radiation dose to as low as reasonably achievable. Dictated by Riley Thakur MD @ 08/16/2022 9:51:01 PM (Electronically Signed) Ordering Physician: Jony Lr M.D. Date of Service: 08/16/22 Procedure(s): CT angio neck Accession Number(s): [id number] cc: Jony Lr M.D.; Isabella Bacon M.D.~ For Patients: As a result of the Century Cures Act, medical imaging exams and procedure reports are released immediately into your electronic medical record. You may view this report before your referring provider. If you have questions, please contact your health care provider. DATE: 08/16/2022 CLINICAL HISTORY: Patient with focal neurological deficits. TECHNIQUE: Standard helical CT image acquisition of the neck up to the skull base after bolus intravenous contrast enhancement. Multiplanar reconstructed images performed on a separate workstation. COMPARISON: CT same day. FINDINGS: The origins of the great vessels from the aortic arch are patent. The origin of the right vertebral artery is patent. The origin of the left vertebral artery is patent. The common carotid arteries are patent. There is no stenosis at the origin of the right internal carotid artery. There is no stenosis at the origin of the left internal carotid artery. The rest of the cervical segments of the internal carotid arteries are patent up to the skull base, being patulous. The vertebral arteries are codominant. The cervical segments of the vertebral arteries are patent up to the skull base. The visualized lung apices are unremarkable. The thyroid gland is unremarkable. The soft tissues of the neck are unremarkable. There are degenerative changes in the cervical spine. IMPRESSION: Normal CT angiogram of the neck. Please note that all CT scans at this facility use dose modulation, iterative reconstruction, and/or weight-based dosing when appropriate to reduce radiation dose to as low as reasonably achievable. Dictated by Riley Thakur MD @ 08/16/2022 9:53:14 PM (Electronically Signed) Ordering Physician: Ganesh Cannon M.D. Date of Service: 08/17/22 Procedure(s): MR head/brain wo con Accession Number(s): [id number] cc: Ganesh Cannon M.D.; Isabella Bacon M.D.~ For Patients: As a result of the Century Cures Act, medical imaging exams and procedure reports are released immediately into your electronic medical record. You may view this report before your referring provider. If you have questions, please contact your health care provider. Indication: Stroke. Technique: Multiplanar, multisequence MRI of the brain was performed without intravenous contrast. Comparison: CT head 08/16/2022. Findings: Mildly of the corpus callosum. Partly empty sella morphology. Clivus is intact. Mild degenerative change visualize upper cervical spine. There is an 11 mm focus of restricted diffusion involving the right thalamus. There is associated T2 FLAIR hyperintensity. The ventricles are proportionate to the cerebral sulci. The 4th ventricle appears midline. The basal cisterns appear patent. No abnormal extra-axial fluid collection identified. Mild parenchymal volume loss. Scattered T2 FLAIR hyperintense foci within the subcortical and periventricular white matter, favored to represent chronic ischemic microvascular disease. There is no intracranial mass, abnormal mass-effect or midline shift identified. Major intracranial vascular flow voids appear grossly intact. Both bilateral pseudophakia. Mild paranasal sinus mucosal disease. Impression: 1. Small acute/subacute right thalamic infarct. 2. Mild chronic ischemic microvascular disease. Dictated by Fredy Clark MD @ 08/17/2022 12:24:21 PM (Electronically Signed) Discharge Plan Discharge Disposition: [facility] Date of Admission: 08/16/22 21:34 Attending Provider on Discharge: Nata Winter Primary Care Provider: Isabella Bacon Anticipated Discharge Date/Time: 08/19/22 12:21 Discharge Medications: New clopidogrel 75 mg Tablet 75 mg PO DAILY Qty: 30 0RF aspirin 81 mg Tablet,Delayed Release (Dr/Ec) 81 mg PO DAILY Qty: 30 0RF insulin aspart U-100 [Novolog Flexpen U-100 Insulin] 100 unit/mL (3 mL) Insulin Pen 1 sliding scale dose subcut ACHS Qty: 15 0RF Rx Instructions: Blood Glucose 150 or less No coverage Blood Glucose 151-200 1 unit Blood Glucose 201-250 2 units Blood Glucose 251-300 3 units Blood Glucose 301-350 4 units Blood Glucose 351 to 400 5 units Blood Glucose 401 and greater 6 units and draw glucose Call MD, then recheck in 2 hours metoprolol tartrate 25 mg Tablet 25 mg PO BID Qty: 60 0RF Continued metformin 1,000 mg tablet 1,000 mg PO BIDWM Touyamilka SoloStar U-300 Insulin 300 unit/mL (1.5 mL) insulin pen 30 unit SUBCUT DAILY atorvastatin 20 mg tablet 20 mg PO HS levothyroxine 88 mcg tablet 88 mcg PO DAILY Qty: 90 0RF Discharge Orders: Discharge Order (Routine); Ordered 08/19/22 Ordered By: Nata Winter Additional Instructions: Accuchecks with meals and at bedtime Activity Level: Up with assist and Use Walker Discharge Diet: Diabetic and Low Fat/Low Cholesterol Dysphagia Food: Level 7- Regular Dysphagia Liquid: Level 0-Thin Follow Up Appointments: Isabella Bacon MD [Primary Care Provider] - (1 week) Admit to: Acute rehab Discharge Potential: Good Length of Stay: <30 days Can use facility standing orders?: Yes Code Status: Full Code TEDs: Bilateral Knee Rehab Potential: Good Therapy: Physical Therapy and Occupational Therapy Therapy Orders: Evaluate and Treat Oxygen: No Urinary Catheter: No Lab Orders: EKG on Wednesday for f/u long QTc. Orders are good >30 days: No Signature: Nata Winter MD
[2022-08-19] MEDS: METOPROLOL TARTRATE 25 MG TABLET PO (10:16)
[2022-08-19 10:33] LABS: Chloride* 104 mmol/L (96-114); Potassium* 4.4 mmol/L (3.6-5.1); Sodium* 141 mmol/L (135-149)
[2022-08-19 10:36] LABS: Blood Urea Nitrogen* 14 mg/dL (7-30); Carbon Dioxide* 25 mmol/L (20-32); Creatinine* 0.7 mg/dL (0.5-1.5); Est. Creatinine Clearance* 36.12; Estimated Glomerular Filt Rate 90 ml/min; Glucose* 272 mg/dL (60-115)
[2022-08-19 10:54] LABS: Troponin I* < 0.01 ng/mL (0.01-0.04)
[2022-08-19 11:00] VITALS: BP 139/80; PULSE 82; RESP 24; TEMP 36.7; O2SAT 94
[2022-08-19 15:57] VITALS: BP 139/80; PULSE 82; RESP 24
--- NOTE | 2022-08-19 16:01 | PC.NURSE ---
Nursing Care Hours: [id number] Pt this shift sitting up in chair. Equal bilateral extremity strength. Slight delay in L side smile. Speech clear, no c/o pain. 1 person assist with walker and gait belt d/t leaning to left. Diet tolerated, pt up to bathroom with assist. TELE discontinued, pt discharged to [facility], spouse transferred from hospital. Paper work given to pt for rehab. Wheel chaired out to car, all questions and concerns addressed.
== END 2022-08-19 13:05 | DRG 65 ==
LOC: ED 21:20 → MEDSURG 21:34
PROVIDERS: Family Medicine; Admitting Provider Family Medicine; Emergency Provider Family Medicine; PCP Emergency Medicine; Visit Provider Family Medicine
DX: I63.89 Other cerebral infarction (principal); N39.0 Urinary tract infection, site not specified; Z16.11 Resistance to penicillins; R26.0 Ataxic gait; R29.810 Facial weakness; R47.81 Slurred speech; I10 Essential (primary) hypertension; R42 Dizziness and giddiness; B96.20 Unspecified Escherichia coli [E. coli] as the cause of diseases classified elsewhere; I67.82 Cerebral ischemia; I44.0 Atrioventricular block, first degree; R00.0 Tachycardia, unspecified; R94.31 Abnormal electrocardiogram [ECG] [EKG]; T36.8X5A Adverse effect of other systemic antibiotics, initial encounter; E11.65 Type 2 diabetes mellitus with hyperglycemia; Z79.4 Long term (current) use of insulin; Z79.84 Long term (current) use of oral hypoglycemic drugs; E78.5 Hyperlipidemia, unspecified; E03.9 Hypothyroidism, unspecified
CPT/HCPCS: 36415; 70450; 70496; 70498; 70551; 80048; 80076; 81001; 83880; 84484; 85025; 85610; 86140; 87086; 87186; 87502; 87634; 87635; 93005; 93306; 94761; 97112; 97116; 97161; 97165; 97530; 97535; 99284; 99285; A9270; J1650; J2060; J7120; Q9967

== ENCOUNTER 2022-08-30 11:55 | Emergency (ER) | payer MEDICARE, SELFPAY ==
[2022-08-30] VITALS (12 sets, daily range): BP systolic 126–160; BP diastolic 60–129; PULSE 53–62; RESP 18; TEMP 35.9; O2SAT 94–97; BMI 32.1
--- NOTE | 2022-08-30 12:06 | CRLHL7_ITS ---
For Patients: As a result of the Century Cures Act, medical imaging exams and procedure reports are released immediately into your electronic medical record. You may view this report before your referring provider. If you have questions, please contact your health care provider. Indication: Recent stroke, numbness to right 4th and 5th fingers Technique: Volumetric multidetector CT images of the head were obtained without the administration of low osmolar intravenous contrast. Comparison: MRI brain August 17, 2022 Findings: There is no intra-axial or extra-axial fluid collection. There is no mass effect or midline shift. There is age-related cortical atrophy with moderate sulcal widening and ex vacuo dilatation of the lateral ventricles. There is redemonstration of evolving late subacute lacunar infarct change of the right thalamus and basal ganglia from comparison exam. There again seen moderate chronic small-vessel disease changes within the subcortical and periventricular white matter. The remaining brain parenchyma is otherwise preserved in attenuation and tsang-white differentiation. The orbits and their contents are grossly within normal limits. The bony calvarium is grossly intact. The paranasal sinuses are clear. The mastoid air cells are well aerated. Impression: Expected evolution of previously seen lacunar infarct within the right thalamus and basal ganglia from comparison exam. Otherwise, stable chronic small-vessel disease changes of the white matter without evidence of acute intracranial abnormality. A report receipt was sent to Dr. Castellanos at 12:51 p.m. August 30, 2022 Please note that all CT scans at this facility use dose modulation, iterative reconstruction, and/or weight-based dosing when appropriate to reduce radiation dose to as low as reasonably achievable. Dictated by Nathen Junior MD @ 08/30/2022 12:53:46 PM (Electronically Signed)
--- NOTE | 2022-08-30 12:21 | ED_ITS ---
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 Patient has been on Plavix and aspirin since the CVA. She was at [facility] in [place] for 6 days and returned home last week. She feels that she is been doing well and has had gradual improvement in her walking. Her states that she still has some difficulty with speech occasionally and specifically with the speed of her speech. Patient denies headache, neck pain, elbow pain or any recent injury. She has not been experiencing any fever or chills. No visual changes. She is left- handed. Related Data Home Medications Medication Instructions Recorded Confirmed insulin glargine U-300 conc 300 30 unit subcut DAILY 08/16/22 08/30/22 unit/mL (1.5 mL) subcutaneous pen (Toujeo SoloStar U-300 Insulin) atorvastatin 20 mg tablet 20 mg PO HS 08/17/22 08/30/22 aspirin 81 mg chewable tablet 1 tab PO DAILY 08/30/22 08/30/22 lisinopril 10 mg tablet 10 mg PO DAILY 08/30/22 08/30/22 pantoprazole 40 mg tablet,delayed 40 mg PO QAM 08/30/22 08/30/22 release Previous Rx's Medication Instructions Recorded levothyroxine 88 mcg tablet 88 mcg PO DAILY #90 tabs 06/11/22 clopidogrel 75 mg tablet 75 mg PO DAILY #30 tabs 08/19/22 insulin aspart U-100 100 unit/mL 1 sliding scale dose subcut ACHS 08/19/22 (3 mL) subcutaneous pen (Novolog #15 mL Flexpen U-100 Insulin aspart) metoprolol tartrate 25 mg tablet 25 mg PO BID #60 tabs 08/19/22 penicillin V potassium 500 mg 500 mg PO TID 10 days #30 tabs 08/30/22 tablet Allergies Allergy/AdvReac Type Severity Reaction Status Date / Time ciprofloxacin Allergy Severe Verified 08/19/22 10:07 Review of Systems Status of ROS: Reports: 10 or more systems reviewed and unremarkable except as noted in History and below Const: Denies: fever or chills Eyes: Denies: change in vision ENMT: Denies: throat pain or neck pain Cardio: Denies: chest pain, palpitations, swelling of feet/ankles, lightheadedness or shortness of breath with exertion Resp: Denies: shortness of breath or cough GI: Denies: abdominal pain, nausea or vomiting : Reports: urinary frequency Musculo: Denies: neck pain Integ/Breast: Denies: rash or redness Neuro: Reports: numbness in extremities and lack of coordination (Improving from recent stroke); Denies: headache PFSH PFS Medical History Diabetes mellitus Dizziness Hyperlipidemia Hypothyroidism Poorly controlled diabetes mellitus Stroke of right basal ganglia Surgical History History of tonsillectomy Social History Narrative: Patient lives independently with her . She reports no mobility problems normally. She does not smoke. She drinks alcohol about once a week. She has 2 children, 1 who lives nearby. She takes care of her 2-year-old granddaughter. His 2 grandchildren in high school and 2 in college. Her is healthcare power of tax associate attorney. Code status is full. Both parents had heart disease. Mom also had cancer of unknown primary. Highest level of school completed/degree received: Bachelor's degree Smoking Status: Never smoker Do you use any of these nicotine containing products: None Second hand tobacco smoke exposure: No How often do you have a drink containing alcohol: monthly or less AUDIT-C Alcohol total score: 1 Non-prescribed substance use: denies use Caffeine: No service: No Exam Narrative: Exam Narrative: Jeanne is a very pleasant elegant appearing woman in no acute distress. Her EOM full and pupils are equal round and reactive. Her visual ontiveros peripheral vision are intact. Eyebrow raise, puffing of the cheeks, smile all symmetrical. Neck is supple without lymphadenopathy. No midline tenderness. Spurling sign is negative for increase of pain in her right arm. Heart is with regular rate and rhythm and lungs are clear in all lung ontiveros. Abdomen is soft and nontender. Lower extremities without edema. Romberg is negative. Finger to nose is intact although and action movement and difficulty connecting with my finger noted on the left arm only. Strength fully intact and upper extremities as well as fingers. Sensation altered on the dorsal aspect of the right 4th and 5th fingers. This is excluding the lateral edge of the 4th finger. Tingling appears to be more present on the dorsum. Although subjectively patient complains of volar finger tingling as well. Compression over the ulnar nerve at the elbow does not increase symptoms. No evidence of swelling or erythema of the fingers. Lower extremities show strength and motor to be fully intact. Patient able to kick my hand with both feet alternatively without difficulty. Const: Vital Signs, click to edit/add: Vital Signs - 24 hr 08/30/22 12:02 08/30/22 12:27 08/30/22 12:32 Temperature 96.6 F L Pulse Rate Pulse Rate [Right Pulse Oximeter] 53 L Respiratory Rate 18 Blood Pressure 150/129 H 126/73 Blood Pressure [Ri ght Upper Arm] 131/75 Pulse Oximetry 97 Oxygen Delivery Me thod Room Air 08/30/22 13:02 08/30/22 13:31 08/30/22 14:02 Temperature Pulse Rate Pulse Rate [Right Pulse Oximeter] Respiratory Rate Blood Pressure 127/73 136/71 131/60 Blood Pressure [Ri ght Upper Arm] Pulse Oximetry Oxygen Delivery Me thod 08/30/22 14:38 08/30/22 15:02 08/30/22 15:03 Temperature Pulse Rate 62 Pulse Rate [Right Pulse Oximeter] Respiratory Rate Blood Pressure 160/93 H Blood Pressure [Ri ght Upper Arm] Pulse Oximetry 94 96 Oxygen Delivery Me thod 08/30/22 15:32 08/30/22 16:02 08/30/22 16:52 Temperature 96.6 F L Pulse Rate Pulse Rate [Right Pulse Oximeter] 53 L Respiratory Rate 18 Blood Pressure 137/82 150/85 H Blood Pressure [Ri ght Upper Arm] 131/75 Pulse Oximetry Oxygen Delivery Me thod Course Course Hospital Course: Patient went immediately to CT. Further will check laboratory values to include a CBC, comprehensive panel, urinalysis, COVID, CRP. Reevaluation(s) Reevaluation #1: Continued persistent tingling of the fingers but no worsening of symptoms. Head CT is reassuring will speak with labor relations consultant. Reevaluation #2: Patient's laboratory values reassuring with the exception of glucose which is elevated over 400. I have further discussion with patient who notes that Tiffany took patient off of her metformin secondary to increased lactic acid. They also changed her long-acting insulin Solostar to Lantus 5 mg t.i.d.. I do find this to be very odd dosing. I have asked pharmacy to help us ascertain the fact that this is her current medications. She also takes NovoLog as a fast acting insulin on a sliding scale. Reevaluation #3: Patient given regular insulin 10 units subQ. Blood sugar does decrease to 330. A further 6 units is given as well as a sandwich for patient to eat. Consultations Consultation #1: I had the pleasure of speaking with [facility]. At this time they do not feel that patient is in need of any lytics or further imaging. Unfortunately I am unable to do MRI here but they did not feel that patient needed to be transferred in order to get MRI. Vital Signs Vital signs: Initial Vital Signs Temperature 96.6 F L 08/30/22 12:02 Temperature Source Temporal Artery Scan 08/30/22 12:02 Pulse Rate 53 L 08/30/22 12:02 Respiratory Rate 18 08/30/22 12:02 Blood Pressure 131/75 08/30/22 12:02 Blood Pressure Mean 93 08/30/22 12:02 Blood Pressure Position Sitting 08/30/22 12:02 Pulse Oximetry 97 08/30/22 12:02 Oxygen Delivery Method 08/30/22 12:02 Vital Signs Temperature 96.6 F L 08/30/22 12:02 Pulse Rate 53 L 08/30/22 12:02 Respiratory Rate 18 08/30/22 12:02 Blood Pressure 131/75 08/30/22 12:02 Pulse Oximetry 97 08/30/22 12:02 Oxygen Delivery Method 08/30/22 12:02 Temperature 96.6 F L 08/30/22 16:52 Pulse Rate 53 L 08/30/22 16:52 Respiratory Rate 18 08/30/22 16:52 Blood Pressure 131/75 08/30/22 16:52 Pulse Oximetry 96 08/30/22 15:03 Oxygen Delivery Method 08/30/22 12:02 MDM - Neuro Symptoms/Deficit MDM Narrative Medical decision making narrative: 1. Right upper extremity tingling-at this time patient had remained stable throughout her stay immediately prior to discharge she has noted that the tingling is starting to resolve. She had no other new neurological deficits. [place] [facility] feels that this is likely sequela of her stroke but does not recommend any further changes in her medications nor need to transfer for MRI. Patient is instructed to return for any worsening symptoms or the onset of new symptoms. She should continue on her current dosing of Plavix and aspirin. Again, patient notes improvement of her symptoms prior to discharge. 2. Hyperglycemia-pharmacy was able to assist us in correct insulin dosing. It is true that she was taken off of her metformin as well as her Solostar. I am not sure why she was placed on Lantus 5 units t.i.d. before meals but we will discontinue this at this time. Patient will go back on her Solostar 30 units starting tomorrow morning. Fortunately, no evidence of acidosis at this time. Patient will restart at Solostar 30 units in the morning. She will continue on her sliding scale. 3. Dental infection-patient declined workup for COVID as her is vocal regarding information that he states is taken from research but is not consistent with current medical practice. At this time patient is asymptomatic for upper respiratory illness. I did state that if she would become symptomatic that we would be happy to discuss treatment with 1 of our antivirals. There is no evidence of urinary tract infection at this time. Upon further discussion she Jeanne does have a tooth that she describes as having drainage. This is her bottom left back molar. There is no surrounding edema or tenderness. I do not see any drainage but she tells me that it has been draining and she is supposed to follow-up with a dentist as it is a failed root canal. I will give her her 1st dose of penicillin tonight 500 mg and asked that she continue 500 mg p.o. t.i.d. for an additional 7 days or until she sees her dentist. 4. Disposition-patient is discharged home in the care of her . Recommend returning for any worsening symptoms. She does have follow-up scheduled on or with Dr. Bacon. She also has endocrinology appointment on September 10. Notes sinus bradycardia during patient's stay improved to 50s to low 60s. Troponin was negative. Patient is asymptomatic to her bradycardia. Medical Records Attestation: I reviewed the patient's medical records. Lab Data Attestation: I reviewed the patient's lab results. Labs: Lab Results 08/30/22 08/30/22 08/30/22 Range/Units 13:20 13:20 15:10 WBC 7.91 (4.50-11.00) K/uL RBC 4.40 (4.00-5.20) m/uL Hgb 12.6 (12.0-16.0) gm/dL Hct 39.4 (33.0-51.0) % MCV 90 (80-100) fL MCH 29 (26-34) pg MCHC 32 (32-36) gm/dL RDW Coeff of [place] 13.4 (11.5-15.5) % Plt Count 315 (140-440) K/uL Neut % (Auto) 62.8 (42.0-72.0) % Lymph % (Auto) 24.7 (20-44) % [place] % (Auto) 8.5 (0.0-11.0) % Eos % (Auto) 3.5 (0.0-7.0) % Baso % (Auto) 0.5 (0.0-3.0) % Neut # (Auto) 4.97 (1.7-7.0) K/uL Lymph # (Auto) 1.95 (0.90-2.90) K/uL [place] # (Auto) 0.70 (0.00-0.90) K/UL Eos # (Auto) 0.28 (0.00-0.50) K/uL Baso # (Auto) 0.04 (0.00-0.30) K/uL Abs Immat Gran (auto) 0.00 (0.00-0.30) K/uL Imm/Tot Granulo (auto) 0.0 % Sodium 137 (135-149) mmol/L Potassium 4.4 (3.6-5.1) mmol/L Chloride 103 (96-114) mmol/L Carbon Dioxide 27 (20-32) mmol/L BUN 15 (7-30) mg/dL Creatinine 0.6 (0.5-1.5) mg/dL Estimated Creat Clear 36.12 Estimated GFR 93 ml/min Glucose 415 H* (60-115) mg/dL Calcium 9.0 (8.4-10.6) mg/dL Total Bilirubin 0.8 (0.1-1.5) mg/dL AST 24 (12-35) U/L ALT 27 (4-35) U/L Alkaline Phosphatase 107 (40-150) U/L C-Reactive Protein < 0.5 L (0.5-1.0) mg/dL Total Protein 6.9 (6.0-8.3) g/dL Albumin 4.2 (3.3-5.0) g/dL Urine Color Yellow (Yellow) Urine Appearance Clear (Clear) Urine pH 5.5 (5.0-8.5) Ur Specific [place] 1.020 (1.000-1.030) Urine Protein Negative (Negative) Urine Glucose (UA) 2+ A (Negative) Urine Ketones Trace A (Negative) Urine Blood Negative (Negative) Urine Nitrite Negative (Negative) Urine Bilirubin Negative (Negative) Urine Urobilinogen 0.2 (0.2-1.0) Ur Leukocyte Esterase Negative (Negative) Urine RBC 0-2 (0-2) Urine WBC 0-2 (0-5) Ur Squamous Epith Cells None (None-Few) Urine Bacteria None (None) Imaging Data CT scan - head: Attestation: I have reviewed the pertinent imaging results. Radiologist's impression: There is no intra-axial or extra-axial fluid collection. There is no mass effect or midline shift. There is age-related cortical atrophy with moderate sulcal widening and ex vacuo dilatation of the lateral ventricles. There is redemonstration of evolving late subacute lacunar infarct change of the right thalamus and basal ganglia from comparison exam. There again seen moderate chronic small-vessel disease changes within the subcortical and periventricular white matter. The remaining brain parenchyma is otherwise preserved in attenuation and tsang-white differentiation. The orbits and their contents are grossly within normal limits. The bony calvarium is grossly intact. The paranasal sinuses are clear. The mastoid air cells are well aerated. Impression: Expected evolution of previously seen lacunar infarct within the right thalamus and basal ganglia from comparison exam. Otherwise, stable chronic small-vessel disease changes of the white matter without evidence of acute intracranial abnormality. ECG Data Attestation: I personally reviewed and interpreted this ECG as follows: ECG interpretation date: 08/30/22 Prior ECG tracings: available for review Interpretation: Sinus bradycardia at a rate of 48. T-wave inversion noted in 3 and flattening of the T-wave of AVF and lateral leads. Certainly this is much slower von previ ous EKG at 103. However T-wave inversion was present on previous EKG. Discharge Plan Discharge Clinical Impression: Acute hyperglycemia, Tingling of right upper extremity, Dental infection Patient Disposition: Home w/ Parent or Adult Condition: Improved Additional Instructions: 1. Tingling of the right hand.-according to Neurology this may be an expected consequence of this stroke. However, should the symptoms worsen or you should have the onset of other symptoms we would like to see you as soon as we can in the emergency room. Continue on Plavix and aspirin at this time. 2. Hyperglycemia-elevated blood sugars. At this time will have you discontinue Lantus completely. Tomorrow morning you will start back on yourToujeo Solostar, 30 units. Check blood sugars frequently tomorrow and adjust your NovoLog as needed. Follow up with Dr. Bacon as scheduled. 3. Start penicillin for possible dental infection and follow-up with dentist when you can. 4. Return for fever, worsening symptoms. Prescriptions: New penicillin V potassium 500 mg tablet 500 mg PO TID 10 Days Qty: 30 0RF No Action aspirin 81 mg tablet,chewable 1 tab PO DAILY Label Comments: TAKE 1 TABLET BY MOUTH ONCE DAILY lisinopril 10 mg tablet 10 mg PO DAILY Label Comments: TAKE 1 TABLET BY MOUTH ONCE DAILY pantoprazole 40 mg tablet,delayed release (DR/EC) 40 mg PO QAM Label Comments: TAKE 1 TABLET BY MOUTH IN THE MORNING BEFORE BREAKFAST Toujeo SoloStar U-300 Insulin 300 unit/mL (1.5 mL) insulin pen 30 unit SUBCUT DAILY atorvastatin 20 mg tablet 20 mg PO HS clopidogrel 75 mg Tablet 75 mg PO DAILY Qty: 30 0RF insulin aspart U-100 [Novolog Flexpen U-100 Insulin] 100 unit/mL (3 mL) Insulin Pen 1 sliding scale dose subcut ACHS Qty: 15 0RF Rx Instructions: Blood Glucose 150 or less No coverage Blood Glucose 151-200 1 unit Blood Glucose 201-250 2 units Blood Glucose 251-300 3 units Blood Glucose 301-350 4 units Blood Glucose 351 to 400 5 units Blood Glucose 401 and greater 6 units and draw glucose Call MD, then recheck in 2 hours metoprolol tartrate 25 mg Tablet 25 mg PO BID Qty: 60 0RF levothyroxine 88 mcg tablet 88 mcg PO DAILY Qty: 90 0RF Follow Up/Referrals: Isabella Bacon MD [Primary Care Provider] - Stand Alone Forms: My [employer] Info Instructions
[2022-08-30 13:25] LABS: Basophils Absolute Auto 0.04 K/uL (0.00-0.30); Basophils Percent Auto 0.5 % (0.0-3.0); Eosinophils Absolute Auto 0.28 K/uL (0.00-0.50); Eosinophils Percent Auto 3.5 % (0.0-7.0); Hematocrit 39.4 % (33.0-51.0); Hemoglobin* 12.6 gm/dL (12.0-16.0); Lymphocytes Absolute Auto 1.95 K/uL (0.90-2.90); Lymphocytes Percent Auto 24.7 % (20-44); Mean Corpuscular HGB Conc 32 gm/dL (32-36); Mean Corpuscular Hemoglobin 29 pg (26-34); Mean Corpuscular Volume 90 fL (80-100); Monocytes Percent Auto 8.5 % (0.0-11.0); Neutrophils Absolute Auto 4.97 K/uL (1.7-7.0); Neutrophils Percent Auto 62.8 % (42.0-72.0); Platelet Count* 315 K/uL (140-440); RDW Coefficient of Variation % 13.4 % (11.5-15.5); Slide Review Reflex No; White Blood Count* 7.91 K/uL (4.50-11.00)
[2022-08-30 13:40] LABS: Albumin* 4.2 g/dL (3.3-5.0); Chloride* 103 mmol/L (96-114); Potassium* 4.4 mmol/L (3.6-5.1); Sodium* 137 mmol/L (135-149)
[2022-08-30 13:42] LABS: Creatinine* 0.6 mg/dL (0.5-1.5); Est. Creatinine Clearance* 36.12; Estimated Glomerular Filt Rate 93 ml/min
[2022-08-30 13:43] LABS: Alanine Aminotransferase* 27 U/L (4-35); Alkaline Phosphatase* 107 U/L (40-150); Aspartate Amino Transferase* 24 U/L (12-35); Bilirubin Total* 0.8 mg/dL (0.1-1.5); Blood Urea Nitrogen* 15 mg/dL (7-30); Carbon Dioxide* 27 mmol/L (20-32); Total Protein* 6.9 g/dL (6.0-8.3)
[2022-08-30 13:49] LABS: C Reactive Protein* < 0.5 mg/dL (0.5-1.0); Glucose* 415 mg/dL (60-115)
[2022-08-30] MEDS: 0.9 % SODIUM CHLORIDE 1000 ml 1,000 ML IV (15:09)
[2022-08-30 15:34] LABS: Appearance Urine Clear (Clear); Bilirubin Urine Negative (Negative); Blood Urine Negative (Negative); Color Urine Yellow (Yellow); Glucose Urine 2+ (Negative); Ketones Urine Trace (Negative); Leukocyte Esterase Urine Negative (Negative); Nitrite Urine Negative (Negative); Protein Urine Negative (Negative); Urobilinogen Urine 0.2 (0.2-1.0); pH Urine 5.5 (5.0-8.5)
[2022-08-30 16:25] LABS: RBC Urine 0-2 (0-2); WBC Urine 0-2 (0-5)
[2022-08-30] MEDS: PENICILLIN VK 250 MG TABLET 500 MG PO (17:00)
== END 2022-08-30 16:45 | disposition home or self-care (01) ==
PROVIDERS: Emergency Provider Family Medicine; PCP Emergency Medicine
DX: R20.2 Paresthesia of skin (principal); E11.65 Type 2 diabetes mellitus with hyperglycemia
CPT/HCPCS: 36415; 70450; 80053; 81001; 82962; 85025; 86140; 87631; 93005; 99284; 99285; A9270; J7030

== ENCOUNTER 2022-10-23 13:44 | Outpatient (CLI) | payer MEDICARE, SELFPAY ==
--- NOTE | 2022-10-23 15:20 | CRLHL7_ITS ---
For Patients: As a result of the Century Cures Act, medical imaging exams and procedure reports are released immediately into your electronic medical record. You may view this report before your referring provider. If you have questions, please contact your health care provider. BILATERAL SCREENING MAMMOGRAM WITH COMPUTER-AIDED DETECTION TECHNIQUE: CC and MLO views were obtained. These mammographic images have been obtained using full-field digital technique. These mammographic images were interpreted with the benefit of computer-aided detection. COMPARISON FILM: 05/13/21, 01/17/19, 12/29/17. FINDINGS: The breasts are almost entirely fatty IMPRESSION: There is no radiographic evidence for malignancy. ASSESSMENT: BI-RADS Category 1: Negative RECOMMENDATION: Routine screening mammogram in 1 year. A lay language report of this examination will be provided to the patient. AMNA MUÑOZ M.D. Diagnostic/Nuclear Medicine Radiologist [email or web address] GLEN:[email or web address] Transcribed: 3:35 p.mLina gibson/Dictated by: Amna Muñoz MD @ 10/26/2022 8:32:00 AM (Electronically Signed)
== END 2022-10-23 13:45 | disposition home or self-care (01) ==
LOC: MAMMO 13:45
PROVIDERS: PCP Emergency Medicine; Visit Provider Emergency Medicine
DX: Z12.31 Encounter for screening mammogram for malignant neoplasm of breast (principal)
CPT/HCPCS: 77067

== ENCOUNTER 2023-01-08 10:57 | Outpatient (CLI) | payer MEDICARE, SELFPAY | END 2023-01-08 10:58 | disposition home or self-care (01) | LOC: NFLDREF 01-09 08:12 | PROVIDERS: PCP Emergency Medicine; Referring Provider Emergency Medicine; Visit Provider Emergency Medicine | DX: E78.5 Hyperlipidemia, unspecified (principal); E11.9 Type 2 diabetes mellitus without complications; I10 Essential (primary) hypertension | CPT/HCPCS: 80053; 80061 ==

== ENCOUNTER 2023-02-01 10:34 | Outpatient (CLI) | payer MEDICARE, SELFPAY | END 2023-02-01 10:35 | disposition home or self-care (01) | LOC: NFLDREF 02-02 10:39 | PROVIDERS: PCP Emergency Medicine; Referring Provider Emergency Medicine; Visit Provider Emergency Medicine | DX: E03.9 Hypothyroidism, unspecified (principal) | CPT/HCPCS: 84443 ==

== ENCOUNTER 2023-03-03 12:00 | Outpatient (RCR) | payer MEDICARE, SELFPAY ==
--- NOTE | 2022-09-10 19:43 | PT.OPE ---
PT [facility] Outpatient Eval PT [facility] Outpatient Eval Start: 09/09/22 14:52 Freq: Status: Active Protocol: Document 09/09/22 14:52 BMS (Rec: 09/09/22 14:53 BMS [id number]) E-signed By Cristiane Miles PT Physical Therapy Outpatient Evaluation Insurance Information Recert Due Date 12/06/22 Insurance Name [employer] Provider Fax Number internal Medical Diagnosis ataxia due to acute cerebrovascular disease I67.89 other cerebrovascular disease r 27.0 ataxia thalamic stroke R Treating Diagnosis R26.0 ataxic gait R 26.89 gait abnormality R27.8 dysmetria Referring MD Isabella Bacon Subjective Subjective had a stroke 08/16/22, spent several days in [facility] then to [facility] re[facility] stay x 6 days. they took me off metformin in rehab bc lactic acid was high, have been on metformin x 20 years. so I ended up back in ED for R hand numb/ tingle (digits 4-5) but my diabetes sugar was really high. working on getting that better. here for left sided weakness. no pain, had a stroke. handwriting is awful (L handed , L side affected), am dropping things, drag my foot bc L side is weak, run into doorknobs all the time on the left, crawl in and out of bed because would fall on floor if I tried to get out the normal way. Have little energy, a, and when I reach for things they are not where I think they are either closer or further away, I want to get back to normal. sometimes I go down the stairs able to do laundry and cooking, do my own shower with a bench. have a cane but feel it is a great nuisance even though my leg feels week. Current Work Status Retired Precautions Treatment Precautions/Contraindications R thalamic stroke (L side affected) 08/16/22 Therapy Limitations/Systems Review Affect,Other Medical Problem Objective Range of Motion cervical ROM - ext mod loss reports feeling slightly light headed. L rotation limited 50 % as well. B shoudler WFL. DF lacking 11 degrees from neutral, elbow valgus/hyperext 22 degrees. Strength Hip flex B 5/5. quad R = 5/5, L = 4/5 with poor stabilization at hip joint HS 5/5, PF and DF 5/5. EHL R 5 /5, L 4/5. lateral walk weakness of L hip abductors and L knee ext in weight bearing. limited insight by patient Balance & Gait decreased hip flex and knee/ hip ext in gait. Initial contact foot flat with heavy placement, significant lack of awareness of L object proximity and gait pattern. does require therapist intervention to avoid running into long loco, doorframes, doorknows, cathcing foot on L on objects. Unable to stabilize on L and signifiant dysmetria with targeted reach with both LE and UE. Trendelenberg noted. Posture head forward, increased thoracic kyphosis. B genu valgus in standing with knees together and feet sep ` 4. Other/Pertinent Objective horizontal nystagmus noted in sitting. decreased eccentric control of DF, hip flexor and quad as well as dysmetric foot placement even with visual cues and assist. ABIDA impaired UE. difficulty managing multiple tasks significiant bruising noted entire length of posterior and lateral L UE from striking objects on L unawares Functional Test Performed & Score mCTSIB fails conditions 3+4. Assessment Assessment/Impression Pt is 77 y.o. female referred to rehab services after having R thalamic stroke (L side affected) on 08/16/22. She also reports new onset of R digits 4-5 numbness and tingling in recent weeks, and did present to the ED for this -states was told was late sequelae from stroke. She spent several days in [facility] then transfered to [facility] acute rehab x 6 days. She has had difficulty regulating blood sugars with A1C of 10.2. Deficites from stroke include L side neglect, weakness and loss of coordination, abnormal gait and some impulsiveness. She is appropriate for skilled physical therapy to improve above areas of concern as well as those listed in the goals section, as identified during subj & obj portions of exam/ eval. Plan of Care Rehabilitation Potential Good Physical Therapy Goals 1) Pt demo modified I with home ex program and follow through for improved mobility, endurance, L sided awareness 2) Pt demo improved awareness of L side in gait and balance - avoiding obstacles including doorframes. 3) Pt demo ability to amb with stride length L=R with least restrictive gait aid using appropriate technique. 4) Pt demo consisency with home program as well as in clinic balance, gait and endurance training. may include vestibular retraingin as wel go. Coordination/Communication With Referral Source Treatment Plan/Direct Interventions Gait Training,Manual Therapy, Neuromuscular Re-ed,Self-Care/ Home Management,Therapeutic Activities,Therapeutic Exercises Frequency/Duration 1-2x/ week x 6-10 weeks. Patient Will Be Discharged From Therapy Completion of LTG(s),Skills Plateau,Independent w/HEP, Independently Progressing Evaluation Billing Untimed Code Treatment Minutes 35 PT Eval No Charge No Complexity High Certification Information Initial Certification Date 09/09/22 Ending Certification Date 12/06/22 Provider Signature Shows Agreement With POC & Medical Necessity Physician Signature & Date Requested Please Sign/Date Here Physician Comment/Change : Physician NPI Number #
--- NOTE | 2023-01-14 13:31 | PT.OPE ---
[facility] Start: 09/09/22 14:52 Freq: Status: Active Protocol: Document 01/13/23 10:57 BMS (Rec: 01/13/23 11:05 BMS [id number]) E-signed By Cristiane Miles PT Physical Therapy Outpatient Evaluation Insurance Information Recert Due Date 04/12/23 Insurance Name Medicare B Provider Fax Number internal Medical Diagnosis 2nd dx 01/13/23: LEFT shoulder pain, RC injury? M25.519 ataxia due to acute cerebrovascular disease I67.89 other cerebrovascular disease r 27.0 ataxia thalamic stroke R Treating Diagnosis 2nd dx added 01/13/23: LEFT shoulder pain, RC strain R26.0 ataxic gait R 26.89 gait abnormality R27.8 dysmetria Referring MD Iasbella Bacon Subjective Subjective went to pick something up off floor with socks on hard floor slipped, fell on L shoulder and hit head. fell on L shoulder ~ 2 weeks ago, then started bothering me rather perfusely on Wed and Wednesday was so out of it. cant sleep bc pain. right now this morning. not as bad as has been last few days 04/12. has been helping with lifting, carrying and doing laundry. i am dropping things L handed. hurts most with lifting arm putting pressure on left sore at shoulder.cant lay on that side to sleep, hard to use dominant hand, have been trying to eat with other side. cant lift or carry . hurts when taking care of little granddaughter. hand and arm go numb once in awhile hurts a lot when I straighten elbow hand feels tight but maybe from stroke. neck hurts at times if postiioned certain way hurts in R back of neck hit head on stove got lump but it went away. Pain Comments 04/12 Current Work Status Retired Preferred Name Lindsey Precautions Treatment Precautions/Contraindications recent fall all gait and balance challenges with gait belt and CGA R thalamic stroke (L side affected) 08/16/22 Therapy Limitations/Systems Review Affect,Cognition,Other Medical Problem Objective Range of Motion cervical flex mild loss, ext WNL. rotation B 25% loss does not change shoulder pain R shoulder flex 150, abduct WFL, ER 60, IR T12. LEFT shoulder affected and dominant: AROM/PROM flex 90/120 abduct 50/120 ER 30/40 (guarded) IR T12 after session elevation flex and abduct to 90 no pain. Strength MMT seated flex adn abduct give way due to pain. ER 4/5 w pain, bicep 4/[address] due to pain, tricep 4/5 relieves pain. L shoulder shrug 3+/5. delay in initiation of resistance noted after instructed. Palpation mod+ tender to mod pressure through RC mm bellies and insertions. mild tender at AC joint. mod tender extensor mass of forearm. tight through pec, deltoid and RC Posture head forward, B scap significantly rounded and protracted. impingement noted with altered posturea nd attempts to eleveate UE Other/Pertinent Objective + Speeds, + empty can. able to place and hold 90 degrees abduct but painful active achieving positon Assessment Assessment/Impression Patient is 77 yo female referred to rehab services for Left shoulder pain of several weeks duration. Patient is concurrently being seen for post-CVA related deficits and has poor insight to ongoing health/medical concerns including appropriate self care and management of HTN and diabetes and how they impact deficits. Short term memory is impaired, has continued left sided weakness and coordination on L side. Patient reports ~ 2-3 weeks ago she fell in kitchen, stating she was wearing socks on hard floor, feet slipped and she fell striking head on the stove. Thinks she landed on L side at that time but unsure as to mechanism of injury. Denies loss of consciousness. Pain reported through shoulder GH into RC distribution, anterior and lateral arm and into extensor forearm. Pain limits use of L dominant UE, raising UE for grooming, dressing, lift/carry , dependent care for granddaughter whom they watch several times per week, difficulty with meal prep, brushing teeth, reaching into cupboard, putting dishes away, pouring, even eating She presents today with moderate shoulder pain that is reportedly much improved with manual therapy this date. She has difficulty with memory and consistent execution of quality repetitions of exercise. She does also demo altered shoulder mechanics with all use of L UE, which was affected by CVA within past year. She is appropriate for skilled physical therapy for improved mobility, ROM, functional strength, mechanics training of UE and pain management in addition to current POC for CVA recovery Plan of Care Rehabilitation Potential Good Physical Therapy Goals STG meet 2-3 weeks 1) Pt demo independence with HEP and self care/home management techniques for shoulder/elbow pain, increased ROM and strength for return to previous level of function. 2) Pt report pain <= 2/10 with reaching into cupboard without substitution. LTG meet 4-6 weeks 1)Pt demo ability to don/doff clothes including shirts and coats without increased pain. 2) Pt demonstrate ability to lift 10# without contortion or substitution patterns of UE or trunk for carrying gallon of milk etc. 3) Pt demo ROM WNL combined flex, abduct and ER to perform grooming and hair brushing. 4) Pt report ability to sleep without waking from pain >2 nights per week in preferred position using appropriate positioning. Coordination/Communication With Referral Source Treatment Plan/Direct Interventions Electrical Stimulation,Gait Training,Ice/Cold/ Vasopneumatic,Joint Mobilization,Manual Therapy, Neuromuscular Re-ed,Self-Care/ Home Management,Therapeutic Activities,Therapeutic Exercises,Ultrasound Frequency/Duration 1-2x/ week x 6 weeks Patient Will Be Discharged From Therapy Completion of LTG(s),Skills Plateau,Independent w/HEP, Independently Progressing Evaluation Billing Untimed Code Treatment Minutes 25 Complexity Moderate Certification Information Initial Certification Date 01/13/23 Ending Certification Date 04/13/23 Provider Signature Shows Agreement With POC & Medical Necessity Physician Signature & Date Requested Please Sign/Date Here Physician Comment/Change : Physician NPI Number #
== END 2023-05-25 10:23 | disposition home or self-care (01) ==
PROVIDERS: PCP Emergency Medicine; Visit Provider Physician Assistant Medical
DX: I63.9 Cerebral infarction, unspecified (principal); I67.89 Other cerebrovascular disease; M25.512 Pain in left shoulder; R26.0 Ataxic gait; R26.89 Other abnormalities of gait and mobility; Z51.89 Encounter for other specified aftercare
CPT/HCPCS: 97110; 97112; 97116; 97140; 97162; 97163; 97165; 97530

== ENCOUNTER 2023-05-27 19:52 | Emergency (ER) | payer MEDICARE, SELFPAY ==
[2023-05-27 20:04] VITALS: BP 124/72; PULSE 68; RESP 16; TEMP 36.6; O2SAT 98; BMI 32.1
--- NOTE | 2023-05-27 20:27 | CRLHL7_ITS ---
For Patients: As a result of the Century Cures Act, medical imaging exams and procedure reports are released immediately into your electronic medical record. You may view this report before your referring provider. If you have questions, please contact your health care provider. INDICATION: Right lower quadrant pain since last night. TECHNIQUE: CT abdomen and pelvis acquired with 83 cc Isovue 370 IV contrast. Permanently recorded images are archived. COMPARISON: None. FINDINGS: The lower chest is unremarkable. Normal liver, gallbladder, pancreas, spleen, and adrenal glands. Bilateral simple renal cysts. 3 mm stone in the right uterovesical junction with associated mild hydroureter and moderate hydronephrosis. The left ureter is unremarkable. Urinary bladder is otherwise normal. Dilated, fluid-filled appendix measuring 10 mm in diameter. No significant periappendiceal inflammatory changes. The bowel is otherwise unremarkable. Ectatic, normal caliber abdominal aorta with moderate atherosclerotic calcification. Mesenteric arteries are patent. No lymphadenopathy. Small fat-containing umbilical hernia. No free air or significant free fluid. The pelvic organs are unremarkable. The osseous structures are unremarkable for age. IMPRESSION: 3 mm stone in the right uterovesical junction with associated mild hydroureter and moderate hydronephrosis. Dilated, fluid-filled appendix measuring 10 mm without significant periappendiceal inflammatory changes. Findings are nonspecific. Early acute appendicitis cannot be entirely excluded. Please note that all CT scans at this facility use dose modulation, iterative reconstruction, and/or weight-based dosing when appropriate to reduce radiation dose to as low as reasonably achievable. Dictated by Luis De Los Santos MD @ 05/27/2023 10:21:15 PM (Electronically Signed)
--- NOTE | 2023-05-27 20:30 | ED_ITS ---
HPI - Abdominal Pain General Chief Complaint: Abdominal Pain Stated Complaint: Abdominal Pain Time Seen by Provider: 05/27/23 19:55 History of Present Illness HPI narrative: This 77-year-old female comes here from urgent care because of right lower quadrant abdominal pain. She states that this pain began last night and reports that it seems to come and go. She states that she had a stroke about half a year ago and has had some constipation issues since then. She did have some nausea and 2 episodes of vomiting but states that this was after she something like [employer]. She does not report any fevers or diarrhea. Related Data Home Medications Medication Instructions Recorded Confirmed insulin glargine U-300 conc 300 30 unit subcut DAILY 08/16/22 05/27/23 unit/mL (1.5 mL) subcutaneous pen (Toujeo SoloStar U-300 Insulin) aspirin 81 mg chewable tablet 1 tab PO DAILY 08/30/22 05/27/23 ascorbic acid (vitamin C) 1,000 mg 1,000 mg PO BID 02/17/23 05/27/23 tablet multivitamin (Multiple Vitamins 1 tab PO QDAY 02/17/23 05/27/23 tablet) Previous Rx's Medication Instructions Recorded insulin aspart U-100 100 unit/mL 1 sliding scale dose subcut ACHS 08/19/22 (3 mL) subcutaneous pen (Novolog #15 mL FlexPen U-100 Insulin aspart) lisinopril 10 mg tablet 10 mg PO DAILY #90 tabs 09/02/22 metoprolol tartrate 25 mg tablet 25 mg PO BID #180 tabs 09/02/22 blood sugar diagnostic ([employer] #450 ea 09/03/22 Verio test strips) levothyroxine 88 mcg tablet 88 mcg PO DAILY #90 tabs 02/01/23 atorvastatin 80 mg tablet 80 mg PO QHS #90 tabs 04/07/23 Allergies Allergy/AdvReac Type Severity Reaction Status Date / Time ciprofloxacin Allergy Severe Verified 05/27/23 19:13 Review of Systems Status of ROS Reports: 10 or more systems reviewed and unremarkable except as noted in History and below Narrative Constitutional: No fevers, no weight gain or loss. Eyes: No discharge. No vision changes. HENT: No congestion, no sore throat, no ear pain. Cardiovascular: No chest pain, no palpitations. Respiratory: No shortness of breath, no wheezes, no cough. Gastrointestinal: Abdominal pain with nausea and vomiting. No diarrhea. Genitourinary: No dysuria, no hematuria. Musculoskeletal: Normal range of motion. Skin: No rashes, no pruritis. Neurological: No dizziness, weakness, sensory change, speech change. Endo/Heme/Allergies: No bruising or bleeding. No polydipsia. Pysch: no suicidality, no anxiety, no insomnia. All other systems reviewed and are negative. [facility] Medical History (Updated 05/28/23 @ 00:06 by Adrián Mandujano MD) Osteopenia ?M85.80 - Other specified disorders of bone density and structure, unspecified site (ICD-10) Pre-op exam ?Z01.818 - Encounter for other preprocedural examination (ICD-10) Arthritis of right acromioclavicular joint ?M19.011 - Primary osteoarthritis, right shoulder (ICD-10) Rotator cuff tear, right ?M75.101 - Unspecified rotator cuff tear or rupture of right shoulder, not specified as traumatic (ICD-10) Shoulder pain ?M25.519 - Pain in unspecified shoulder (ICD-10) Aspirin long-term use ?Z79.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 of aspirin (ICD-10) History of vaginal delivery Encounter for fecal immunochemical test screening ?Z12.11 - Encounter for screening for malignant neoplasm of colon (ICD-10) Encounter for annual physical exam ?Z00.00 - Encounter for general adult medical examination without abnormal findings (ICD-10) Poorly controlled diabetes mellitus ?E11.65 - Type 2 diabetes mellitus with hyperglycemia (ICD-10) Stroke of right basal ganglia ?I63.81 - Other cerebral infarction due to occlusion or stenosis of small artery (ICD-10) Diabetes mellitus ?E11.9 - Type 2 diabetes mellitus without complications (ICD-10) Dizziness ?R42 - Dizziness and giddiness (ICD-10) Hypothyroidism ?E03.9 - Hypothyroidism, unspecified (ICD-10) Hyperlipidemia ?E78.5 - Hyperlipidemia, unspecified (ICD-10) Surgical History (Updated 03/18/23 @ 16:17 by Isabella Bacon MD) History of bilateral tubal ligation ?Z98.51 - Tubal ligation status (ICD-10) History of tonsillectomy ?Z90.89 - Acquired absence of other organs (ICD-10) Family History (Updated 08/31/22 @ 15:16 by Jimena Pollard) Father Coronary artery disease Sister Coronary artery disease Brother Coronary artery disease Mother Cancer Maternal Grandmother FH: mental illness Social History Narrative: Patient lives independently with her . She reports no mobility problems normally. She does not smoke. She drinks alcohol about once a week. She has 2 children, 1 who lives nearby. She takes care of her 2-year-old granddaughter. His 2 grandchildren in high school and 2 in college. 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 Code status is full. Both parents had heart disease. Mom also had cancer of unknown primary. Highest level of school completed/degree received: Bachelor's degree Smoking Status: Never smoker Do you use any of these nicotine containing products: None Second hand tobacco smoke exposure: No How often do you have a drink containing alcohol: monthly or less AUDIT-C Alcohol total score: 1 Non-prescribed substance use: denies use Caffeine: No service: No Exam Narrative: Exam Narrative: Constitutional: Well-developed, well-nourished, no acute distress. HEENT: Normocephalic, atraumatic. Neck: Normal range of motion. Nontender. Supple. Heart: Regular. No murmurs. Normal rate. Intact distal pulses. Lungs: Clear to auscultation. No chest discomfort. No wheezes, rhonchi, or rales. Abdomen: Normal bowel sounds. Mild to moderate tenderness in the right lower quadrant. Rovsing sign is negative. No rebound tenderness. Genitalia: Deferred. Back: No midline tenderness. Normal range of motion. Extremities: Normal range of motion. No injury. Skin: Intact. No rash. Warm. No erythema or pallor. Neurologic: No altered sensation. No weakness. Alert and oriented. Psychiatric: No suicidality. No anxiety or depression. No insomnia. Nursing notes and vitals signs are reviewed. Const: Vital Signs, click to edit/add: Vital Signs - 24 hr 05/27/23 20:04 Temperature 97.9 F Pulse Rate [Left P ulse Oximeter] 68 Respiratory Rate 16 Blood Pressure [Ri ght Upper Arm] 124/72 Pulse Oximetry 98 Oxygen Delivery Me thod Room Air Course Vital Signs Vital signs: Initial Vital Signs Temperature 97.9 F 05/27/23 20:04 Temperature Source Temporal Artery Scan 05/27/23 20:04 Pulse Rate 68 05/27/23 20:04 Respiratory Rate 16 05/27/23 20:04 Blood Pressure 124/72 05/27/23 20:04 Blood Pressure Mean 89 05/27/23 20:04 Blood Pressure Position Sitting 05/27/23 20:04 Pulse Oximetry 98 05/27/23 20:04 Oxygen Delivery Method Room Air 05/27/23 20:04 Vital Signs Temperature 97.9 F 05/27/23 20:04 Pulse Rate 68 05/27/23 20:04 Respiratory Rate 16 05/27/23 20:04 Blood Pressure 124/72 05/27/23 20:04 Pulse Oximetry 98 05/27/23 20:04 Oxygen Delivery Method Room Air 05/27/23 20:04 Temperature 97.9 F 05/27/23 20:04 Pulse Rate 68 05/27/23 20:04 Respiratory Rate 16 05/27/23 20:04 Blood Pressure 124/72 05/27/23 20:04 Pulse Oximetry 98 05/27/23 20:04 Oxygen Delivery Method Room Air 05/27/23 20:04 MDM - Abdominal Pain MDM Narrative Medical decision making narrative: This 77-year-old female comes in reporting pain in her right lower quadrant that seems to come and go. She was sent here from urgent care with a need for CT scan. The scan is obtained without contrast and shows evidence of a 3 mm stone in the right ureter with some moderate hydronephrosis. Incidentally the patient also has a fluid-filled appendix measuring 10 mm which may be a sign of early appendicitis. Her white count returns at 13.3 so I contacted the surgeon on- call who stated this may be an early appendicitis and recommended admission overnight. I re-examined the patient who states now that she is not having any pain whatsoever. I was able to press on her abdomen in the right lower quadrant without any discomfort whatsoever. It seems very likely her symptoms were related to ureteral calculus and possibly she has passed the stone. The patient is requesting to go home so I did provide prescription for Toradol and [place] and indicated signs and symptoms that would indicate a need for return and re- evaluation. Lab Data Labs: Lab Results 05/27/23 05/27/23 Range/Units 20:40 20:45 WBC 13.37 H (4.50-11.00) K/uL RBC 4.46 (4.00-5.20) m/uL Hgb 13.2 (12.0-16.0) gm/dL Hct 41.3 (33.0-51.0) % MCV 93 (80-100) fL MCH 30 (26-34) pg MCHC 32 (32-36) gm/dL RDW Coeff of [place] 14.5 (11.5-15.5) % Plt Count 281 (140-440) K/uL Neut % (Auto) 77.9 H (42.0-72.0) % Lymph % (Auto) 11.6 L (20-44) % [place] % (Auto) 9.0 (0.0-11.0) % Eos % (Auto) 1.2 (0.0-7.0) % Baso % (Auto) 0.2 (0.0-3.0) % Neut # (Auto) 10.40 H (1.7-7.0) K/uL Lymph # (Auto) 1.60 (0.90-2.90) K/uL [place] # (Auto) 1.20 H (0.00-0.90) K/UL Eos # (Auto) 0.20 (0.00-0.50) K/uL Baso # (Auto) 0.00 (0.00-0.30) K/uL Abs Immat Gran (auto) 0.00 (0.00-0.30) K/uL Imm/Tot Granulo (auto) 0.1 % INR 1.02 (0.91-1.10) Sodium 141 (135-149) mmol/L Potassium 4.1 (3.6-5.1) mmol/L Chloride 107 (96-114) mmol/L Carbon Dioxide 27 (20-32) mmol/L Anion Gap 7 (7-15) mEq/L BUN 25 (7-30) mg/dL Creatinine 1.3 (0.5-1.5) mg/dL Estimated Creat Clear 27.78 Estimated GFR 43 ml/min Glucose 129 H (60-115) mg/dL Calcium 9.3 (8.4-10.6) mg/dL Total Bilirubin 0.6 (0.1-1.5) mg/dL Direct Bilirubin 0.2 (0.0-0.5) mg/dL AST 31 (12-35) U/L ALT 22 (4-35) U/L Alkaline Phosphatase 87 (40-150) U/L NT-Pro-B Natriuret Pep 264 pg/mL Total Protein 7.0 (6.0-8.3) g/dL Albumin 4.0 (3.3-5.0) g/dL Urine Color Yellow (Yellow) Urine Appearance Clear (Clear) Urine pH 5.5 (5.0-8.5) Ur Specific [place] 1.025 (1.000-1.030) Urine Protein Negative (Negative) Urine Glucose (UA) Negative (Negative) Urine Ketones Trace A (Negative) Urine Blood 2+ A (Negative) Urine Nitrite Negative (Negative) Urine Bilirubin Negative (Negative) Urine Urobilinogen 0.2 (0.2-1.0) Ur Leukocyte Esterase Negative (Negative) Urine RBC 2-5 A (0-2) Urine WBC 2-5 (0-5) Ur Squamous Epith Cells Few (None-Few) Urine Bacteria Few A (None) POC Troponin I 0.00 L (0.01-0.04) ng/ml Imaging Data CT scan - abdomen: Radiologist's impression: 3 mm stone in the right uterovesical junction with associated mild hydroureter and moderate hydronephrosis. Dilated, fluid-filled appendix measuring 10 mm without significant periappendiceal inflammatory changes. Findings are nonspecific. Early acute appendicitis cannot be entirely excluded. ECG Data Attestation: I personally reviewed and interpreted this ECG as follows: Interpretation: Normal sinus rhythm with 1st degree AV block. Rate is 78 beats per minute. There are no ST or T-wave abnormalities. Discharge Plan Discharge Clinical Impression: Right ureteral calculus Patient Disposition: Home, Self-Care Condition: Improved Additional Instructions: Take medication as needed and indicated. Follow up with MD or return if symptoms are persistent or recurrent. Prescriptions: No Action ascorbic acid (vitamin C) 1,000 mg tablet 1,000 mg PO BID multivitamin [Multiple Vitamins] Tablet 1 tab PO QDAY metoprolol tartrate 25 mg tablet 25 mg PO BID Qty: 180 3RF lisinopril 10 mg tablet 10 mg PO DAILY Qty: 90 3RF (DME) OneTouch Verio test strips Strip See Rx Instructions .Route Qty: 450 3RF Rx Instructions: use to test blood sugar 5 times daily aspirin 81 mg tablet,chewable 1 tab PO DAILY Patient Comments: TAKE 1 TABLET BY MOUTH ONCE DAILY Toujeo SoloStar U-300 Insulin 300 unit/mL (1.5 mL) insulin pen 30 unit SUBCUT DAILY insulin aspart U-100 [Novolog FlexPen U-100 Insulin] 100 unit/mL (3 mL) Insulin Pen 1 sliding scale dose subcut ACHS Qty: 15 0RF Rx Instructions: Blood Glucose 150 or less No coverage Blood Glucose 151-200 1 unit Blood Glucose 201-250 2 units Blood Glucose 251-300 3 units Blood Glucose 301-350 4 units Blood Glucose 351 to 400 5 units Blood Glucose 401 and greater 6 units and draw glucose Call MD, then recheck in 2 hours levothyroxine 88 mcg tablet 88 mcg PO DAILY Qty: 90 3RF atorvastatin 80 mg tablet 80 mg PO QHS Qty: 90 0RF Follow Up/Referrals: Isabella Bacon MD [Primary Care Provider] - Stand Alone Forms: [employer] Info Instructions
[2023-05-27 20:47] LABS: Basophils Percent Auto 0.2 % (0.0-3.0); Eosinophils Percent Auto 1.2 % (0.0-7.0); Hematocrit 41.3 % (33.0-51.0); Hemoglobin* 13.2 gm/dL (12.0-16.0); Immature Granulocytes Pct Auto 0.1 %; Lymphocytes Percent Auto 11.6 % (20-44); Mean Corpuscular HGB Conc 32 gm/dL (32-36); Mean Corpuscular Hemoglobin 30 pg (26-34); Mean Corpuscular Volume 93 fL (80-100); Neutrophils Percent Auto 77.9 % (42.0-72.0); Platelet Count* 281 K/uL (140-440); RDW Coefficient of Variation % 14.5 % (11.5-15.5); Red Blood Count 4.46 m/uL (4.00-5.20); White Blood Count* 13.37 K/uL (4.50-11.00)
[2023-05-27 20:48] LABS: Slide Review Reflex No
[2023-05-27 21:00] LABS: Chloride* 107 mmol/L (96-114); Potassium* 4.1 mmol/L (3.6-5.1); Sodium* 141 mmol/L (135-149)
[2023-05-27 21:03] LABS: Anion Gap 7 mEq/L (7-15); Blood Urea Nitrogen* 25 mg/dL (7-30); Carbon Dioxide* 27 mmol/L (20-32); Creatinine* 1.3 mg/dL (0.5-1.5); Est. Creatinine Clearance* 27.78; Estimated Glomerular Filt Rate 43 ml/min; Glucose* 129 mg/dL (60-115)
[2023-05-27 21:04] LABS: Alanine Aminotransferase* 22 U/L (4-35); Alkaline Phosphatase* 87 U/L (40-150); Aspartate Amino Transferase* 31 U/L (12-35); Bilirubin Direct* 0.2 mg/dL (0.0-0.5); Bilirubin Total* 0.6 mg/dL (0.1-1.5); Calcium* 9.3 mg/dL (8.4-10.6); INR 1.02 (0.91-1.10)
[2023-05-27 21:13] LABS: NT Pro B Type NatriureticPept* 264 pg/mL
[2023-05-27 21:15] LABS: Appearance Urine Clear (Clear); Bilirubin Urine Negative (Negative); Blood Urine 2+ (Negative); Glucose Urine Negative (Negative); Ketones Urine Trace (Negative); Leukocyte Esterase Urine Negative (Negative); Nitrite Urine Negative (Negative); Protein Urine Negative (Negative); Specific Gravity Urine 1.025 (1.000-1.030); Urobilinogen Urine 0.2 (0.2-1.0); pH Urine 5.5 (5.0-8.5)
[2023-05-27 21:19] LABS: Color Urine Yellow (Yellow)
[2023-05-27 21:23] LABS: Bacteria Urine Few; Squamous Epithelial Cell Urine Few (None-Few)
[2023-05-28 00:12] VITALS: BP 133/68; PULSE 64; RESP 16; TEMP 36.8
== END 2023-05-28 00:13 | disposition home or self-care (01) ==
PROVIDERS: Emergency Provider Emergency Medicine Emergency Medical Services; PCP Emergency Medicine
DX: N20.1 Calculus of ureter (principal)
CPT/HCPCS: 36415; 74177; 80048; 80076; 81001; 83880; 84484; 85025; 85610; 87086; 93005; 99284; Q9967

== ENCOUNTER 2023-06-29 12:16 | Outpatient (CLI) | payer MEDICARE, SELFPAY ==
[2023-06-29 12:42] LABS: Hematocrit 40.9 % (33.0-51.0); Hemoglobin* 13.1 gm/dL (12.0-16.0); Mean Corpuscular HGB Conc 32 gm/dL (32-36); Mean Corpuscular Hemoglobin 30 pg (26-34); Mean Corpuscular Volume 95 fL (80-100); Platelet Count* 300 K/uL (140-440); Red Blood Count 4.31 m/uL (4.00-5.20); White Blood Count* 7.56 K/uL (4.50-11.00)
[2023-06-29 12:44] LABS: Slide Review Reflex No
[2023-06-29 21:52] LABS: Chloride* 106 mmol/L (96-114)
[2023-06-29 21:53] LABS: Potassium* 4.2 mmol/L (3.6-5.1); Sodium* 143 mmol/L (135-149)
[2023-06-29 21:55] LABS: Carbon Dioxide* 29 mmol/L (20-32); Creatinine* 0.7 mg/dL (0.5-1.5); Estimated Glomerular Filt Rate 90 ml/min
[2023-06-29 21:56] LABS: Anion Gap 8 mEq/L (7-15); Blood Urea Nitrogen* 19 mg/dL (7-30); Glucose* 147 mg/dL (60-115)
== END 2023-06-29 12:17 | disposition home or self-care (01) ==
LOC: LKVREF 12:17
PROVIDERS: PCP Emergency Medicine; Visit Provider Emergency Medicine
DX: Z01.818 Encounter for other preprocedural examination (principal)
CPT/HCPCS: 80048; 85027

== ENCOUNTER 2023-07-14 07:09 | Day surgery (SDC) | payer MEDICARE, SELFPAY ==
[2023-07-14] VITALS (13 sets, daily range): BP systolic 77–111; BP diastolic 43–71; PULSE 55–84; RESP 14–20; TEMP 36.1–36.4; O2SAT 85–95; BMI 32.8
[2023-07-14] MEDS: LACTATED RINGERS 1000 ML 1,000 ML 100 ML IV ×2 (08:00→10:43)
[2023-07-14] MEDS: SODIUM CHLORIDE 0.9 % (FLUSH) 10 ML SYRINGE IVF (08:00)
--- NOTE | 2023-07-14 08:14 | W.PM.NB ---
Nerve Block Nerve Block Time Seen by Provider: 08:46 Date Seen: 07/14/23 Type of block requested by surgeon for post-operative analgesia: supraclavicular Side: left Time out performed: Yes Verification of patient name: Yes Verification of date of : Yes Site marking: site marked Name of person performing procedure: Alex Continuous monitoring Was continuous monitoring of O2 sat, B/P, cardiac surgeon, recorded every 15 minutes?: Yes Procedure Checklist: sterile prep, needles and gloves Ultrasound guided. Images saved: Yes Medications given in 5ml increments after negative aspiration: Ropivicaine %: 0.5 mL: 20 Needle gauge: 22 Decadron (mg): 10 Precedex (mcg): 25 Patient tolerated procedure well: Yes Block Charges Block Charge (with Pro Fee): Brachial Plexus Use of Ultrasound Machine for Block: Yes- US Guidance/pain block
--- NOTE | 2023-07-14 08:14 | W.ANESCHARGE ---
Anesthesia Charges Start Date/Time Anesthesia Start Date: 07/14/23 Anesthesia Start Time: 09:25 Stop Date/Time Anesthesia Stop Date: 07/14/23 Anesthesia Stop Time: 11:27 Summary Extremes of Age - Over 70 or under 1: MDA
[2023-07-14] MEDS: fentaNYL 100 MCG/2 ML inj IVP (08:43)
[2023-07-14] MEDS: MIDAZOLAM HCL 1 MG/ML inj IVP (08:43)
--- NOTE | 2023-07-14 09:22 | SUR.PREOP ---
TIME?OUT:?0843 PT/RN/MDA?VERIFICATION?OF?SURGICAL?SITE,?PROCEDURE,?AND?CONSENT OBTAINED?PRIOR?TO?INVASIVE?PROCEDURE.
--- NOTE | 2023-07-14 09:28 | SUR.PREOP ---
Wedding ring x2 removed by JUAN CARLOS Yanes prior to surgery. Pt aware these are removed from left ring finger, placed in cup and secure in post op room 4.
--- NOTE | 2023-07-14 09:43 | W.PM.H&PU ---
History & Physical Update History & Physical Update H&P Reviewed and patient assessed: No changes noted
[2023-07-14] MEDS: CEFAZOLIN 2 GM in 0.9 % SODIUM CHLORIDE Mini-bag 100 ML IVPB (09:53)
[2023-07-14] MEDS: EPINEPHrine 1 MG in SODIUM CHLORIDE IRRIG SOLUTION 3,000 ML 9003 MG IRRIGATION ×3 (10:00→10:45)
--- NOTE | 2023-07-14 11:07 | P.ORPRC_ITS ---
Procedure Note Date of procedure: 07/14/23 Procedure: PREOPERATIVE DIAGNOSES: 1. Left shoulder rotator cuff tear. 2. Left shoulder subacromial impingement syndrome. 3. Left shoulder anterior and superior labral tearing POSTOPERATIVE DIAGNOSES: 1. Left shoulder rotator cuff tear - supraspinatus 2. Left shoulder subacromial impingement syndrome. 3. Left shoulder anterior and superior labral tearing NAME OF OPERATION: 1. Left shoulder arthroscopic rotator cuff repair - full thickness supraspinatus 2. Left shoulder arthroscopic limited glenohumeral debridement 3. Left shoulder arthroscopic bursectomy, subacromial decompression/partial acromioplasty. SURGEON: Dalton Wall MD ANIMAL SHELTER CLERK: Joaquín Camacho. Of note, a skilled housekeeping assistant was critical for this case to aide in patient positioning, suture manipulation, arm positioning, instrument positioning, and closure. ANESTHESIA: General plus preoperative supraclavicular block. EBL: 25 mL IMPLANTS: Arthrex 5.5 mm BioComposite corkscrew suture anchor (x1); 5.5 mm BioComposite SwiveLock suture anchor (x2) COMPLICATIONS: None evident INDICATIONS: The patient is a pleasant, 77-year-old female who has experienced left shoulder pain that has been increasing in recent time. Physical exam and imaging were consistent with a rotator cuff tear. Given their findings, as well as the weakness and pain, and inadequate response to nonoperative management, recommendation was made for surgery. FINDINGS: Exam under anesthesia revealed stable shoulder with excellent range of motion. The diagnostic arthroscopy revealed relatively healthy articular cartilage surfaces of the glenohumeral joint. The Subscapularis tendon was torn in low-grade partial-thickness manner on the deep superior surface. Majority of the tendon was clearly still strongly attached the lesser tuberosity. The long head of the biceps tendon was intact with mild flattening to the bicipital groove/intra-articular region, but no subluxation or dislocation of the bicipital groove. The superior rotator cuff tendon was found to be torn full- thickness through the anterior portion with retraction slightly medial and slightly posterior with slight delamination into the infraspinatus junction. The labrum was degenerative fraying torn the anterior and superior aspects peer. No loose bodies were identified within the pouch or subscapularis recess. PROCEDURE: Following a thorough discussion of risks, benefits, and alternatives, consent was obtained and the left shoulder was marked. The patient was brought to the operating room and placed supine on the operating table. Induction of anesthesia was completed after preoperative supraclavicular block was administered in preop holding. Appropriate time out was performed identifying proper patient, site, and procedure. 2 g IV Ancef was administered within 1 hour of incision preoperatively. The left upper extremity was prepped and draped in the appropriate sterile fashion using ChloraPrep prep. This was after the patient was positioned in the beach chair with their head in neutral alignment and all bony prominences well padded. The shoulder was insufflated with 20mL of normal saline via an 18g spinal needle from a posterior approach. An 11 blade skin incision allowed a blunt trochar to be inserted and diagnostic arthroscopy to be performed with the findings as noted above. An anterior portal was established with an outside in technique. This allowed the probe to be inserted and confirm the diagnostic arthroscopic findings. The shaver was then inserted and allowed debridement of the anterior and superior labrum as well as the upper border subscapularis deep surface low-grade partial- thickness tearing. Following this, the upper border subscapularis was probed and found to be stable with only a minimal low-grade partial-thickness deep surface tearing. Thereafter, the subacromial space was entered. Here, a complete bursectomy and partial acromioplasty/subacromial decompression was performed with a combination of radiofrequency ablator, the shaver, and a 5.5 mm bur. Further inspection of the supraspinatus and infraspinatus rotator cuff was performed. This identified the tear as noted above. The margins of the tear were debrided, and the greater tuberosity was debrided with a combination of the apollo cautery, shaver, and bur on reverse setting. [After gentle decortication, single corkscrew suture anchor was placed in the anterior medial portion of the footprint. The 4 suture tape tails were passed independently allowing reapproximation of the supraspinatus tissue that had torn and migrated medially and posteriorly. The sutures were tied and the tails then passed 2 lateral anchors with excellent supraspinatus rotator cuff reapproximation to the greater tuberosity. Of note, a FiberLink suture was placed through the far anterior portion of the cuff tear and brought to the anterolateral anchor with 2 of the other suture tails. The tissue quality was decent during passage, but the bone quality was soft. The anchors did feel to have solid/secure fixation but we did encounter softer bone than is typical. Prior to anchor auto driver removal, the eyelet sutures were tugged on for each anchor and found that the anchor had excellent stability within the bone. The shoulder was placed through range of motion and found to be stable. The rotator cuff was re-probed and found to be stable. Instruments were removed. Excess fluid was drained, closure performed with 4-0 Monocryl and Steri-Strips. Dressings were applied. Sling was applied. The patient was awoken from [facility] and transferred to the PACU in stable condition. A skilled housekeeping assistant was critical for this case to aid in patient positioning, limb positioning, skill to manipulate arthroscopic instruments and camera, suture management, patient safety, and closure. PLAN: 1. Elbow, forearm, wrist and digit range of motion of operative extremity as tolerated. 2. Encouraged ice. 3. Oxycodone for pain as needed. 4. Sling at all times except for ROM and showering. 5. Follow up with PA visit in 1-2 weeks for wound check. Initiate physical therapy following that visit for passive range of motion. Initiate active assisted range of motion at 6 weeks. Active motion at 8 weeks. Strengthening at 10-12 weeks. May do pendulums now.
--- NOTE | 2023-07-14 11:30 | W.ANESCHARGE ---
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
== END 2023-07-14 13:50 | disposition home or self-care (01) ==
PROVIDERS: PCP Emergency Medicine; Visit Provider Orthopaedic Surgery Sports Medicine
PROC: (CPT 29805; principal; 2023-07-14 09:00)
DX: M75.102 Unspecified rotator cuff tear or rupture of left shoulder, not specified as traumatic (principal); M75.42 Impingement syndrome of left shoulder; S43.432A Superior glenoid labrum lesion of left shoulder, initial encounter; G89.18 Other acute postprocedural pain
CPT/HCPCS: 29827; 29826; 29822; 01630; 64415; 76942; 82962; 99100; C1713; J0171; J0330; J0690; J1100; J2250; J2405; J2704; J2795; J3010; J7120; L3670

== ENCOUNTER 2023-12-06 09:15 | Outpatient (CLI) | payer MEDICARE, SELFPAY | END 2023-12-06 09:16 | disposition home or self-care (01) | LOC: NFLDREF 12-19 08:50 | PROVIDERS: PCP Emergency Medicine; Referring Provider Emergency Medicine; Visit Provider Emergency Medicine | DX: E03.9 Hypothyroidism, unspecified (principal); E11.9 Type 2 diabetes mellitus without complications; E78.5 Hyperlipidemia, unspecified | CPT/HCPCS: 80053; 80061; 84443 ==

== ENCOUNTER 2023-12-08 15:50 | Outpatient (CLI) | payer MEDICARE, SELFPAY | END 2023-12-08 15:51 | disposition home or self-care (01) | LOC: LKVREF 15:50 | PROVIDERS: PCP Emergency Medicine; Visit Provider Emergency Medicine | DX: E11.65 Type 2 diabetes mellitus with hyperglycemia (principal) | CPT/HCPCS: 82043; 82570 ==

== ENCOUNTER 2023-12-28 11:15 | Outpatient (RCR) | payer MEDICARE, SELFPAY ==
--- NOTE | 2023-08-05 16:55 | PT.OPE ---
PT [facility] PT [facility] Eval Start: 08/04/23 15:24 Freq: Status: Active Protocol: Document 08/04/23 15:25 BMS (Rec: 08/04/23 15:30 BMS [id number]) E-signed By Cristiane Miles PT Physical Therapy Outpatient Evaluation Insurance Information Recert Due Date 11/01/23 Insurance Information/Comments medicare advantage [employer] Provider Fax Number internal Medical Diagnosis Left shoulder RCR, SAD, limited GH debridement. initiate PT for PROM, AAROM 6 weeks AROM 8 weeks strength 10-12 weeks Treating Diagnosis L shoulder pain s/p RCR etc. Referring MD Klaudia TABOR, Mae RENTERIA Subjective Subjective fell in December 2019 and hurt my shoulder. It just wasnt getting better, so had surgery on 07/14/23. It does hurt, I am wearing the sling even to bed, though it is hard to sleep. It is mostly achy on the front, I havent really used it much. do the elbow and wrist exercises but that is all, oh and was icing right away but not so much now. using some tylenol now Pain Comments 10/13 or so, during session did express pain up to 04/12 Current Work Status Retired Preferred Name Lindsey Precautions Treatment Precautions/Contraindications L hand dominant, LEFT RCR DOS 07/14/23: hx thalamic CVA PROM now, AAROM 6 weeks 08/25/23 AROM 8 weeks 09/08/23 strength 10-12 weeks 09/22/23- 10/06/23 Objective Range of Motion PROM shoulder flex 60 (up to 80 after session), ext to 15, ER 5 (up to 20), IR to abdomen all in scaption. not tolerating front flex active elbow WNL, wrist WFL. cervical flex WNL, extension severe loss, rotation B 60 degrees., Strength hands and wrists 5/5. Palpation mod tender through RC mm bellies, pec, bicep, UT levator and roosevelt clavicular. Posture head forward, B scapular protraction, L UE placed palm down on plinth w mod WB through it Sensation/Reflexes sensation appears intact to light touch throughout shoulder complex Other/Pertinent Objective improved clarity and cognition noted this date vs prior episodes of care, may improve carrover Assessment Assessment/Impression Patient is very pleasant 77 yo female referred to rehab services s/p LEFT shoulder ( dominant) arthroscopic RCR (x3 anchor supraspinatus), SAD, limited glenohumeral debridement (date of surgery 07/14/2023). She is known to this therapist through prior episodes of care s/p CVA. 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 Today she presents in sling worn w UE by side, elbow bent, neutral ER/IR rather than across abdomen as is customary . She states she is wearing the sling all the time including to bed. States she is not using cold pack as often as she was initial 3 weeks. Is able to verbalize restrictions of coffee cup weight and no reaching over head, and states 'I havent reallly used it too much. Past medical hx + for CVA and related falls, diabetes, arthroscopic RCR (x3 anchor supraspinatus), SAD, limited glenohumeral debridement (date of surgery 07/14/2023) L shoulder pain, and cognitive/ memory changes. She is appropraite for skilled physical therapy to imrprove ROM, functional strength, return to grooming, ADLs and use of L UE as tolerated as per protocol Primary Functional Limitations all shoulder related teasks Plan of Care Rehabilitation Potential Good Physical Therapy Goals 1) Pt demo independence with HEP and self care/home management techniques for shoulder/elbow pain, increased ROM and strength for return to previous level of function. 2) Pt report pain <= 2/10 with reaching into cupboard without substitution. 3)Pt demo ability to don/doff clothes including shirts and coats without increased pain. 4) Pt demonstrate ability to lift 10# without contortion or substitution patterns of UE or trunk for carrying gallon of milk etc. 5) Pt demo ROM WNL combined flex, abduct and ER to perform grooming and hair brushing. 6) Pt report ability to sleep without waking from pain >2 nights per week in preferred position using appropriate positioning. Coordination/Communication With Referral Source Treatment Plan/Direct Interventions Electrical Stimulation,Manual Therapy,Neuromuscular Re-ed, Self-Care/Home Management, Therapeutic Activities, Therapeutic Exercises Frequency/Duration 1-2x/ week x 12 weeks Patient Will Be Discharged From Therapy Completion of LTG(s),Skills Plateau,Independent w/HEP, Independently Progressing Evaluation Billing Untimed Code Treatment Minutes 15 Complexity Low Certification Information Initial Certification Date 08/04/23 Ending Certification Date 11/01/23 Provider Signature Shows Agreement With POC & Medical Necessity Physician Signature & Date Requested Please Sign/Date Here Physician Comment/Change : Physician NPI Number #
--- NOTE | 2023-11-09 19:16 | PT.OPDN ---
PT [facility] Daily Note PT [facility] Daily Note Start: 08/04/23 15:24 Freq: Status: Active Protocol: Document 11/09/23 10:36 BMS (Rec: 11/09/23 19:15 BMS [email or web address]) E-signed By Cristiane Miles, PT PT OP Daily Progress Note Visit Information Note Type Daily Note Visit Number [id number] Insurance Authorized Visits no auth required per EMR Insurance Information Recert Due Date 11/01/23 Insurance Name Other; See Comments Insurance Information/Comments medicare advantage [employer] Medical Diagnosis Left shoulder RCR, SAD, limited GH debridement. initiate PT for PROM, AAROM 6 weeks AROM 8 weeks strength 10-12 weeks Treating Diagnosis L shoulder pain s/p RCR etc. Referring MD Klaudia TABOR, Mae RENTERIA Subjective Subjective did not do the ex I have just been so thrown by the loss of my brother Preferred Name Lindsey Precautions Treatment Precautions/Contraindications L hand dominant, LEFT RCR DOS 07/14/23: hx thalamic CVA Home Exercise Home Exercise Comments Access Code: [email or web address] URL: [email or web address] Date: 11/03/2023 Prepared by: Cristiane Miles Exercises - Supine Shoulder Flexion Extension Full Range AROM - 1 -3 x daily - 5-7 x weekly - 1- 3 sets - 10-20 reps - strength : 5-10 sec hold - Single Arm Shoulder Extension with Anchored Resistance - 1-3 x daily - 5- 7 x weekly - 1-3 sets - 10-20 reps - strength: 5-10 sec hold - Shoulder External Rotation with Anchored Resistance - 1- 3 x daily - 5-7 x weekly - 1-3 sets - 10-20 reps - strength: 5-10 sec hold - Standing Shoulder Internal Rotation with Anchored Resistance - 1-3 x daily - 5- 7 x weekly - 1-3 sets - 10-20 reps - strength: 5-10 sec hold - Shoulder Adduction with Anchored Resistance - 1-3 x daily - 5-7 x weekly - 1-3 sets - 10-20 reps - strength: 5-10 sec hold Objective Other/Pertinent Objective AROM L shoulder flex 125 w concurrent elbow flex, abduct to 80, ER 30, IR to L1 PROM to 135, ER to 60, IR to L1 Patient Instructed in Risks/Benefits Yes Therapeutic Exercise Therapeutic Exercise Minutes (minutes) 27 Therapeutic Exercise: To Restore -pulleys 3 min flex, 2 min Functional Status scaption - red band shoulder rows B x 15, ER x 15, IR x 15, adduction from top of door x -supine flexion x 15 B seated flex, abduct, ER, IR AAROM supine x 30 all planes then manual resist gentle. -wall slides x 10 w 10 sec hold, -back at wall B shoulder flex x 10+5 - supine shoulder flex 1# wt each hand x 5, then 1# bar B2x10, chest press 2x10, work on full elbow ext -tricep supine from hand on head to guided elbow straight x 15 -3# towel circles on table x 10 CW, CCW - active abduction x 10, sidelying abduction 10+5 -sidelying ER 10+5 -seated ER, IR and flex 2 x 10 w 5 sec holds Manual Therapy Techniques Manual Therapy Minutes (minutes) 15 Manual Therapy Techniques stm mfr to entire shoulder complex with active release and gentle grade III IV mobs to improve mobility Treatment Minutes Timed Code Treatment Minutes 42 Total Treatment Time 42 Billing Units Manual Therapy Units 1 Therapeutic Exercise Units 2 Assessment/Impression Assessment/Impression pushing ex repetitions more and holds longer to improve tissue mobility and ROM as well as tolerance for activity . patient will be out of state next week for may cancel depending on date of session Plan of Care Physical Therapy Goals 1) Pt demo independence with HEP and self care/home management techniques for shoulder/elbow pain, increased ROM and strength for return to previous level of function. 2) Pt report pain <= 2/10 with reaching into cupboard without substitution. 3)Pt demo ability to don/doff clothes including shirts and coats without increased pain. 4) Pt demonstrate ability to lift 10# without contortion or substitution patterns of UE or trunk for carrying gallon of milk etc. 5) Pt demo ROM WNL combined flex, abduct and ER to perform grooming and hair brushing. 6) Pt report ability to sleep without waking from pain >2 nights per week in preferred position using appropriate positioning. Daily Plan of Care Continue per POC Daily Plan of Care Comments LEFT RCR DOS 07/14/23: PROM now, AAROM 6 weeks 08/25/23 AROM 8 weeks 09/08/23 strength 10-12 weeks 09/22/23- 10/06/23 patient is appropriate for skilled physical therapy to improve mobility, ROM, functional strength and use of LEFT dominant UE s/p RCR, SAD , as per protocol and phase of healing. Recertification Information Initial Certification Date 08/04/23 Recertification Start Date 11/01/23 Reasons to Continue Skilled Therapy able to progress strengthening and continue to work on ROM Rehabilitation Potential good, limited memory cognition , limited carrythrough with home program despite good intentions, mobility deficits in L UE to dysmetria and dyscoordination s/p CVA Continued Plan of Care and Interventions TE MT neuro selfcare, multiplanar movements, use fo UE for balance corrections, B shoulder strength and stability Provider Signature Shows Agreement With POC & Medical Necessity
== END 2024-04-26 23:59 | disposition home or self-care (01) ==
PROVIDERS: PCP Emergency Medicine; Visit Provider Orthopaedic Surgery Sports Medicine
DX: M19.012 Primary osteoarthritis, left shoulder (principal); S46.012A Strain of muscle(s) and tendon(s) of the rotator cuff of left shoulder, initial encounter; Z51.89 Encounter for other specified aftercare
CPT/HCPCS: 97110; 97140; 97161

== ENCOUNTER 2024-02-23 12:31 | Outpatient (CLI) | payer MEDICARE, SELFPAY ==
--- NOTE | 2024-02-23 13:00 | XR_ITS ---
Patient: WHITNEY CHU Facility:?[facility] Patient ID:?[id number] Site Patient ID:?[id number]. Site :?1945 Study:?DEXA-Bone Density-02/23/2024 1:36:56 PM Ordering Physician:YASSINE Final Report: DXA BONE MINERAL DENSITY STUDY Reason for exam: Low bone density. Current height (in): 61. Weight (lb): 171. Menopause age: 57. Ethnicity: White. 1. Have you had a previous hip or vertebral fracture? No. 2. Have you had any fractures during your adult life which did not result from significant trauma (e.g., auto accident)? Yes. 3. Did either of your parents have a hip fracture? No. 4. Do you smoke? No. 5. Have you ever taken Glucocorticoids? No. 6. Do you have rheumatoid arthritis? No. 7. Do you have secondary osteoporosis? No. 8. Do you drink 3 or more alcoholic drinks per day? No. 9. Are you being treated for osteoporosis? No. 10. Have you ever taken any of the following medications: Actonel, Evista, Fosamax, Miacalcin, Reclast, Boniva, Forteo, HRT (i.e. estrogen/hormone therapy), Protelos, Prolia, Vitamin D, Calcium, other ? please specify. ANSWER: Yes, vitamin D and calcium. 11. Do you have any of the following medical conditions: Anorexia or bulimia, asthma or emphysema, end stage renal disease, hyperparathyroidism, any seizure disorders, cancer, inflammatory bowel diseases, hysterectomy, other ? please specify. ANSWER: No. 12. What was your maximum height (inches)? 60. 13. Do you perform weight bearing exercise regularly? No. 14. Do you regularly consume dairy products? No. 15. Do you drink caffeinated beverages? No. 16. At what age did your period start? 11. 17. Are you premenopausal? No. 18. How many full term pregnancies have you had? 4. 19. Have you ever missed your period for more than 6 months in a row (not including or menopause)? No. TECHNIQUE: Bone mineral density study was performed using the [employer]. FINDINGS: The results of the study expressed as bone mineral density (BMD) are as follows: Lumbar spine L1 to L3: BMD: 1.026 g/cm2. T-score: 0.1. Z-score: 2.6. Neck Left: BMD: 0.617 g/cm2. T-score: -2.1. Z-score: 0.1. Right: BMD: 0.621 g/cm2. T-score: -2.1. Z-score: 0.1. Total Left: BMD: 0.797 g/cm2. T-score: -1.2. Z-score: 0.7. Right: BMD: 0.802 g/cm2. T-score: -1.1. Z-score: 0.8. IMPRESSION: Osteopenia. *Comparison exams done prior to 03/2020 were performed on different unit, [facility] [employer]. COMPARISON: Compared with scan of 07/03/2020, the bone mineral density has decreased by 4.8 percent at the spine and decreased by 1.2 percent at the hip. FRAX 10-year Fracture Risk Major Osteoporotic Fracture: 20 percent Hip Fracture: 5.1 percent Reported Risk Factors: [place] () Neck BMD=0.617, BMI=32.3, previous fracture Demetrius Rodriguez M.D. Diagnostic Radiologist [email or web address] DSM/sp R& Transcribed: 8:03 p.m. SP/Dictated by: Demetrius Rodriguez MD @ 02/24/2024 9:19:00 AM Signed by:?Demetrius Rodriguez MD @02/25/2024 5:25:03 AM (Electronic Signature)
--- NOTE | 2024-02-23 13:40 | MM_ITS ---
Patient: WHITNEY CHU Facility:?[facility] Patient ID:?[id number] Site Patient ID:?[id number] Site :?[id number] Study:?XRay-Breast Bilateral 3D W/CAD-02/23/2024 2:26:23 PM Ordering Physician:Isabella Hicks Final Report: BILATERAL SCREENING MAMMOGRAM WITH COMPUTER-AIDED DETECTION AND TOMOSYNTHESIS TECHNIQUE: CC and MLO views were obtained. These mammographic images have been obtained using full-field digital technique. These mammographic images were interpreted with the benefit of computer-aided detection. Breast Tomosynthesis was used in this interpretation. COMPARISON FILM: 10/23/22, 05/13/21, 09/03/20. FINDINGS: There are scattered areas of fibroglandular density. IMPRESSION: There is no radiographic evidence for malignancy. ASSESSMENT: BI-RADS Category 1: Negative RECOMMENDATION: Routine screening mammogram in 1 year. A lay language report of this examination will be provided to the patient. Demetrius Rodriguez M.D. Diagnostic Radiologist [email or web address] DSM/sp R& Transcribed: 3:48 p.m. SP/Dictated by: Demetrius Rodriguez MD @ 02/24/2024 1:21:00 PM Signed by:Evans Rodriguez MD @02/24/2024 3:59:49 PM (Electronic Signature)
== END 2024-02-23 12:32 | disposition home or self-care (01) ==
LOC: RAD 12:31
PROVIDERS: PCP Emergency Medicine; Visit Provider Emergency Medicine
DX: Z12.31 Encounter for screening mammogram for malignant neoplasm of breast (principal); Z13.820 Encounter for screening for osteoporosis; M85.89 Other specified disorders of bone density and structure, multiple sites; M85.80 Other specified disorders of bone density and structure, unspecified site
CPT/HCPCS: 77063; 77067; 77080

== ENCOUNTER 2024-04-27 14:16 | Outpatient (CLI) | payer MEDICARE, SELFPAY | END 2024-04-27 14:17 | disposition home or self-care (01) | LOC: LKVREF 14:17 | PROVIDERS: PCP Emergency Medicine; Visit Provider Emergency Medicine | DX: E11.65 Type 2 diabetes mellitus with hyperglycemia (principal); E11.9 Type 2 diabetes mellitus without complications; R42 Dizziness and giddiness; I10 Essential (primary) hypertension | CPT/HCPCS: 80048 ==

== ENCOUNTER 2024-05-02 12:26 | Outpatient (CLI) | payer MEDICARE, SELFPAY | END 2024-05-02 12:27 | disposition home or self-care (01) | LOC: LKVREF 12:27 | PROVIDERS: PCP Emergency Medicine; Visit Provider Emergency Medicine | DX: E78.5 Hyperlipidemia, unspecified (principal) | CPT/HCPCS: 80061 ==

== ENCOUNTER 2024-08-23 11:45 | Outpatient (RCR) | payer MEDICARE, SELFPAY ==
--- NOTE | 2024-05-10 13:53 | PT.OPE ---
[facility] Eval PT [facility] Eval Start: 05/09/24 17:28 Freq: Status: Active Protocol: Document 05/09/24 17:46 BMS (Rec: 05/09/24 17:50 BMS [id number]) E-signed By Cristiane Miles PT Physical Therapy Outpatient Evaluation Insurance Information Recert Due Date 08/06/24 Insurance Name Medicare B,are Provider Fax Number internal Medical Diagnosis ataxia due to acute cerebrovascular disease other cerebrovascular disease I67.89 ataxia unspecified R 27.0 Treating Diagnosis abnormal gait R26.89 ataxia R27.0 vestibular disorder of function H81.90 Referring MD Isabella Bacon Subjective Preferred Name Lindsey Subjective not really sure if things are getting better, getting worse. my balance and walking isnt very good at all, havent fallen but afraid I might. having trouble with dropping things or not getting food to my mouth I have to think about it. I get lightn headed and slow off balacne. hard time getting regular sleep, havent had a sleep study, tongue still feels like sandpaper so nothing tastes good except steak and ice cream. feet are a littl enumb have been since before the stroke, neuropathy - feel wobblier than I remember being. hard to think or navigate familiar place. writing is worse, L handed but trouble eating with either hand. no problem on stairs as long as I have a rail my memory is getting worse I know that. I have an appt with OT coming up also, my memory isnt very good, I stopped in on my way to store to see when my appt is, and it is now! having trouble iwht my blood sugars - my A1C is like 10 adn now I have continuous glucose monitor but no one tells me what to do with it if it is high - no one instructed me how much to take or when so I take it on schedule like my solid waste landfill technician said. I dont worry about it until is >300. also stopped taking my blood pressure meds bc has been running low, like 90/53. 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 Strength MMT seated R UE shoulder, elbow, wrist groups 5/5 L flex 4+/5, abduct 3+/5, ER 3 /5, IR 5/5, elbow wrist and hand 5/5. R dry wall nailer 52,56, 58#. L dry wall nailer ( dominant) 38, 42, 44# (avg 79 yo femal 24-61# Balance & Gait Gait - no gait aid. low guard with decreased L foot clearance and spasticity noted . intiial contact with foot flat on L and lack fo knee ext . gaze down and slighlty forward for proprioception compensation. mCTSIB fails conditinos 3 and 4 with LOB to L tandem falls to L finger nose dysmetria with ataxia with L (5=25 sec), smooth and unchallenged with R (5=10 sec) smooth pursuits with saccades shabnam to L. horizontal nystagmuss suppressed with gaze. VOR positive for symptoms and inability to maintain target gaze unable to SLS, retro waqlk required mod to max assist for safety. Posture head forward of inc thoracic kyphosis specifically higher. lack of knee ext in swing phase to stance phase. L UE does move spontaneously but also left by side. braces self in chair. Sensation/Reflexes DTR R quad inc vs L others all L = R Functional Test Performed & Score mCTSIB fails conditions 3 & 4 with fall to L require max to total assist for recovery ABC Activities-specific Balance Confidence (ABC) Scale Summary 1. Walk around the house? Confidence walking around the house: 90 / 100 (90 points) 2. Walk up or down stairs? Confidence walking up or down stairs: 90 / 100 (90 points) 3. Bend over and filler picker a slipper from the front of a closet floor? Confidence bending over (e.g. to filler picker slipper): 80 / 100 (80 points) 4. Reach for a small can off a shelf at eye level? Confidence reaching for a can at eye level: 70 / 100 (70 points) 5. Stand on your tip toes and reach for something above your head? Confidence standing on tip toes, reaching above head: 30 / 100 (30 points) 6. Stand on a chair and reach for something? Confidence standing on a chair and reachin / 100 (30 points) 7. Sweep the floor? Confidence sweeping the floor: 30 / 100 (30 points) 8. Walk outside the house to a car parked in the driveway? Confidence walking outside home to car in driveway: 70 / 100 (70 points) 9. Get into or out of a car? Confidence getting into or out of car: 80 / 100 (80 points) 10. Walk across a parking lot to the mall? Confidence walking across parking lot to mall: 70 / 100 (70 points) 11. Walk up or down a ramp? Confidence walking down a ramp : 70 / 100 (70 points) 12. Walk in a crowded mall where people rapidly walk past you? Confidence walking in crowded mall with people walking rapidly: 40 / 100 (40 points) 13. Are bumped into by people as you walk through the mall? Confidence when bumped into by people walking at mall: 50 / 100 (50 points) 14. Step onto or off of an escalator while you are holding onto a railing? Confidence stepping on or off escalator holding railin / 100 (70 points) 15. Step on/off escalator holding parcels so cannot hold railing? Confidence stepping on or off escalator not holding railing : 20 / 100 (20 points) 16. Walk outside on icy sidewalks? Confidence walking on icy sidewalks: 20 / 100 (20 points) The tools listed on this website do not substitute for the informed opinion of a licensed physician or other health care provider. All scores should be re- checked. Please see our full Terms of Use. Total ABC score: 910/1600=56.9 percent. Assessment Assessment/Impression Patient is well known to this therapist via prior episodes of care post stroke as well as for shoulder RCR after fall. She presents today with low guard gait with foot flat initial contact on L and 2x stumble after foot drop, ataxia and dysmetria with L UE and LE, weakness of R shoulder, impaired proprioception and environmental awareness, c/o memory deficits, balance impairment including loss of compensation for visual occlusion and labile surface. consistently falls to L with challenges and perturbations. Patient is appropriate for skilled physical therapy to improve mobility, strength, gait and function including lifting from floor properly, dual task and higher level balance and gait skills. Primary Functional Limitations balance, gait, bending, reaching, carrying, dexterity, safety Plan of Care Rehabilitation Potential Good Rehabilitation Potential Comments dedicated with in clinic work, difficulty with completion of HEP. chronic fatigue, chronic balance, comorbidities including likely diabetic neuropathy of feet. chronic thalamic stroke deficits, vestibular component. Physical Therapy Goals 1) Pt demo I HEP and self care/home mgmt techniques for improved pain management and performance of independent ADLs including transfers and grooming. 2) Pt report pain <= 2/10 with ambulation >30 min IADL i.e. grocery or necessity shopping. LTG meet 4-6 weeks 1) Pt demo ability to lift LE independently without hand assist when fatigued for entrance to vehicle, entrance/ exit from tub for grooming without substitution or fear of falling. 2) Pt demo gait pattern without antalgia, with equal stride lengths and demo appropriate hip, knee, and ankle motions. 3) Pt demo appropriate balance responses to decrease risk of falls with internal and external perturbations. 4) Pt demo ability to ascend/ descend steps without pain or failure to control eccentric motion for access to home laundry and shower. 5) Pt will demo 500' ambulation without limp and with best mechanics and balance to decrease risk of fall with community ambulation for things such as grocery shopping, participation in fitness activities. Coordination/Communication With Referral Source Treatment Plan/Direct Interventions Gait Training,Manual Therapy, Neuromuscular Re-ed,Orthotics/ Braces,Self-Care/Home Management,Therapeutic Activities,Therapeutic Exercises Frequency/Duration 1-2x / week until OT eval 06/01 then try to coordinate appt going fwd 1-2x/ week x 12 weeks Patient Will Be Discharged From Therapy Completion of LTG(s),Skills Plateau,Independent w/HEP, Independently Progressing Evaluation Billing Untimed Code Treatment Minutes 40 Complexity Moderate Certification Information Initial Certification Date 05/09/24 Ending Certification Date 08/06/24 Provider Signature Required Yes Provider Signature Shows Agreement With POC & Medical Necessity Physician NPI Number Write NPI# Here Physician Comment/Change : Physician Signature & Date Requested Please Sign/Date Here
--- NOTE | 2024-06-01 16:12 | OT.OPGNE2 ---
OT Outpatient General/Neuro Eval OT Outpatient General/Neuro Eval* Start: 06/01/24 14:28 Freq: Status: Active Protocol: Document 06/01/24 14:29 CINDI (Rec: 06/01/24 16:10 CINDI [id number]) E-signed By Ines Chi, OTR/L, CLT OT Outpatient Evaluation Details Type Type Eval Complexity Medium Insurance Information Insurance Information Insurance Information Medicare B,UCARE Outpatient History/Precautions Current Condition Referring Provider Dr. Isabella Bacon Medical Diagnoses I63.9 Cerebral Infarction unspecified with word finding difficulty Treatment Diagnoses R41.89, Other symptoms and signs involving cognitive function and awareness R44.9, Other disturbances of skin sensation R27.8, Other lacking coordination Date of Onset 08/16/22 Medical/Functional History Medical History Reviewed Yes Prior Medical History Prior Medical History CVA (cerebral vascular accident) I63.9 - Cerebral infarction, unspecified (ICD- 10) Lightheaded R42 - Dizziness and giddiness (ICD-10) Low bone density M85.9 - Disorder of bone density and structure, unspecified (ICD-10) Osteopenia M85.80 - Other specified disorders of bone density and structure, unspecified site ( ICD-10) Pre-op exam Z01.818 - Encounter for other preprocedural examination (ICD -10) Arthritis of right 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, right shoulder (ICD-10) Rotator cuff tear, right M75.101 - Unspecified rotator cuff tear or rupture of right shoulder, not specified as traumatic (ICD-10) Shoulder pain M25.519 - Pain in unspecified shoulder (ICD-10) Aspirin long-term use Z79.82 - FPC (current) use of aspirin (ICD-10) History of vaginal delivery Encounter for fecal immunochemical test screening Z12.11 - Encounter for screening for malignant neoplasm of colon (ICD-10) Encounter for annual physical exam Z00.00 - Encounter for general adult medical examination without abnormal findings (ICD -10) Poorly controlled diabetes mellitus E11.65 - Type 2 diabetes mellitus with hyperglycemia ( ICD-10) Stroke of right basal ganglia I63.81 - Other cerebral infarction due to occlusion or stenosis of small artery (ICD -10) Diabetes mellitus E11.9 - Type 2 diabetes mellitus without complications (ICD-10) Dizziness R42 - Dizziness and giddiness (ICD-10) Hypothyroidism E03.9 - Hypothyroidism, unspecified (ICD-10) Hyperlipidemia E78.5 - Hyperlipidemia, unspecified (ICD-10) Surgical History (Updated 01/25 @ 10:45 by Adamaris Newell) History of arthroscopy of left shoulder (07/14/23) Z98.890 - Other specified postprocedural states (ICD-10) History of bilateral tubal ligation Z98.51 - Tubal ligation status (ICD-10) History of tonsillectomy Z90.89 - Acquired absence of other organs (ICD-10) Home Medications ascorbic acid (vitamin C) 1, 000 mg PO BID aspirin 1 tab PO DAILY atorvastatin 80 mg PO QHS blood sugar diagnostic ( [employer] Verio test strips) use to test blood sugar 5 times daily blood-glucose meter,continuous (DexCompliance Control G7 Prison Keeper) As directed blood-glucose sensor (Dexcom G7 Sensor device) As directed insulin aspart U-100 (Novolog FlexPen U-100 Insulin aspart) 1 sliding scale dose subcut ACHS insulin glargine U-300 conc ( Toujeo SoloStar U-300 Insulin) 46 units (0.1533 mL) subcut DAILY levothyroxine 88 mcg PO DAILY lisinopril 10 mg PO DAILY metoprolol tartrate 25 mg PO BID metoprolol tartrate 12.5 mg (1 /2 x 25 mg) PO BID multivitamin (Multiple Vitamins tablet) 1 tab PO QDAY Precautions General Precautions hx thalamic stroke ~ 2 years chronic uncontrolled diabetes (on insulin) wears a Dexcom Social History Type of Dwelling Detached [facility] Number of Floors (Floors) 2 Lives With: Spouse Other basement and upstairs Employment Status Retired Current Occupation Patient worked on [employer] (only retired a few years ago in 2020) Hobbies Reading (has been hard to process) Patient Subjective Subjective Patient Subjective Patient is L hand dominant ( and the stroke impacted her L hand). She reports numbness and tingling which is intermittent. She states that her tongue also has numbness and tingling, and she has a loss of appetite. Lives with Tegan who has severe Neuropathy. Patient does all the grocery shopping (eats breakfast and supper). Spouse does breakfast and patient does supper. Patient does all the laundry and finances. Both patient and spouse drive. 4-year-old granddaughter lives 2 doors down. Normal cycle: Patient goes to bed at Midnight or 2am, wakes up around 10:30 or 11am and usually takes a 2 hours nap during the day. Pain Assessment Pain Pain No Coordination Assessment Coordination Test Side Coordination Test Side Left Side,Right Side Left Side Finger to Nose Test Normal Performance Finger to Therapist's Finger Test Normal Performance Finger to Finger Test Minimal Impairment Alternate Nose to Finger Test Normal Performance Finger Opposition Test Minimal Impairment Disdiadokinesis/Hand Turning Minimal Impairment 9-Hole Test 31 seconds Right Side Finger to Nose Test Normal Performance Finger to Therapist's Finger Test Normal Performance Finger to Finger Test Normal Performance Alternate Nose to Finger Test Normal Performance Finger Opposition Test Normal Performance Disdiadokinesis/Hand Turning Normal Performance 9-Hole Test 24 seconds Hand Pinch/Route Process Administrator Strength Hand Pinch/Route Process Administrator Strength Hand Pinch/Route Process Administrator Strength Left Hand,Right Hand Left Hand Route Process Administrator Strength Position 1 in Elbow 55 Flexion (lbs) Route Process Administrator Strength Position 2 in Elbow 50 Extension (lbs) Lateral Pinch Strength (lbs) 12 Three Point Pinch (lbs) 12 Tip Pinch Strength (lbs) 10 Right Hand Route Process Administrator Strength Position 1 in Elbow 50 Flexion (lbs) Route Process Administrator Strength Position 2 in Elbow 50 Extension (lbs) Lateral Pinch Strength (lbs) 13 Three Point Pinch (lbs) 12 Tip Pinch Strength (lbs) 10 Comments Comments L shoulder had RC surgery Cognitive Assessments Performed Oriented Patient oriented Person,Place,Time,Situation Cognitive Assessments Performed [place] Making A and B Results Part A: 26 seconds (no impairment noted, score is WNL ) Part B: 86 seconds (no impairment noted, score is WNL ) Antonio Cognitive Assessment (MOCA) Results on the MOCA, Version 7.3 Vision/Hearing Vision Tracking WNL Tracking Comments Wears reading glasses Gets a yearly eye exam Saccades WNL Near Point of Convergence WNL Vision Changes Comments Of note: patient frequently closes her eyes during Eval ( unsure why) when it was brought to her attention she said I guess I didn't notice I was doing that, I'm not sure why Hearing Hearing Hard of Hearing,Wears Heading Aides Hearing Comments Bilateral hearing aides Assessment Assessment Assessment 78-year-old L UE dominant female referred both for OT and PT, with medical dx of chronic thalamic stroke, had a fall after stroke and tore L rotator cuff which was repaired. Also diabetic, has chronically high glucose and A1C levels, is afraid of going low. Averages in 170s-200s. No recent falls. Biggest complaints OT jorge: Comprehension and Memory ( notices her memory is worse, like used to never be able to reread a book, now rereads things she has read because she has no idea what happens later in the book, forgets things at home). Diminished light touch sensation ( tingling and numbness of the L dominant hand): dropping things, difficulty with writing and using her utensils when eating, (also stroke side). PT POC is addressing gait, balance, and vestibular. OT POC will focus on UE sensation/proprioception and strength; dual task challenges , patient education as well as functional cognitive progressing. Occupational Therapy Treatment Plan - OP Potential Rehabilitation Potential Good Set Goals Goals Set with Patient Yes Goals Goals 1. From EVAL score (49 points) on The Upper Extremity Functional Index (UEFI) patient will have a change in score by >9 points in order to show significant change in UE function to better her ADL, IADL and leisure performance. (The highest possible score of 80. The lowest possible score is 0. A lower score indicates that the person is reporting increased difficulty with the activities). 2. Patient will increase L ( dominant) hand manager employment strength from 55/50 lbs to >60 lbs in order to return to everyday tasks w/o fear of dropping items 3. Patient will demonstrate stereognosis in left hand by identifying 10/10 functional objects without use of visual or auditory cues in order to retrain normalized sensory perception and hand function for dressing, bathing and home management tasks 4. The patient will actively engage in Cognitive & Visual assessments to determine level of functional problem solving and safety awareness relative to discharge recommendations. 5. The patient will be taught a HEP in order to better regulate blood sugars, decreasing the likelihood of pressure ulcers for greater health management. Treatment Plan Treatment Plan Evaluation,Manual Therapy, Therapeutic Exercise, Therapeutic Activities,Self- Care/Home Management,Caregiver Training,Education,Functional /Cognitive Skills, Neuromuscular Reeducation Expected Frequency As Needed Expected Duration 12 Certification Certification Statement I Certify That: Therapy Services Provided, Therapy Plan Established, Therapy Plan Reviewed Certification Information Clinic ID # [id number] Initial Certification Date 06/01/24 Recertification Due Date 08/30/24 Provider Signature Required Yes Provider Signature Shows Agreement With POC & Medical Necessity Physician NPI Number Write NPI# Here Physician Comment/Change Comment or Changes Physician Signature & Date Requested Please Sign/Date Here
--- NOTE | 2024-08-16 12:52 | PT.OPDN ---
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 I also just started one of the blood pressure meds bc it has been running a bit higher agian so I just started it a few days ago. Precautions Treatment Precautions/Contraindications hx thalamic stroke ~ 2 years past chronic uncontrolled insulin dep diabetes L RCR in past after fall after stroke Home Exercise Home Exercise Comments Access Code: [email or web address] URL: [email or web address] Date: 08/16/2024 Prepared by: Cristiane Miles Exercises - Step Forward with Arms Reaching to Sides - 1-3 x daily - 5-7 x weekly - 1-3 sets - 10-20 reps - strength: 5-10 sec hold - stretches: hold 30-60 sec stretch - Step Sideways with Arms Reaching - 1-3 x daily - 5-7 x weekly - 1-3 sets - 10-20 reps - Forward Step with Overhead Arm Swing - 1-3 x daily - 5-7 x weekly - 1-3 sets - 10-20 reps - Alternating Backward Step - 1-3 x daily - 5-7 x weekly - 1-3 sets - 10-20 reps Objective Patient Instructed in Risks/Benefits Yes Therapeutic Exercise Therapeutic Exercise Minutes (minutes) 5 Therapeutic Exercise: To Restore pulleys flex, scaption Functional Status Neuromuscular Re-Ed Neuromuscular Reeducation Minutes ( 39 minutes) Neuromuscular Reeducation Comments Access Code: [email or web address] URL: [email or web address]/ Date: 08/16/2024 Prepared by: Cristiane Miles Exercises - Step Forward with Arms Reaching to Sides - 1-3 x daily - 5-7 x weekly - 1-3 sets - 10-20 reps - strength: 5-10 sec hold - stretches: hold 30-60 sec stretch - Step Sideways with Arms Reaching - 1-3 x daily - 5-7 x weekly - 1-3 sets - 10-20 reps - Forward Step with Overhead Arm Swing - 1-3 x daily - 5-7 x weekly - 1-3 sets - 10-20 reps - Alternating Backward Step - 1-3 x daily - 5-7 x weekly - 1-3 sets - 10-20 reps also in clinic step tap to black push up bar (10 height) unilateral blocked x 10-15 then alternating each side x 10-15 no UE assist (does use low guard for balance. - forward bend/ mod squat to pickup 10 mark anthony from floor, then raise overhead x 10 (last 3 just to chest height due to L UE pain - NBOS w EC balance - NBOS head nods 10 Treatment Minutes Timed Code Treatment Minutes 44 Total Treatment Time 44 Billing Units Therapeutic Exercise Units 3 Assessment/Impression Assessment/Impression Patient returns with no new complaints, states she is actually feeling not too bad. She does feel she is maintaining current function, has been intermittent with home program. Instructed this date in new HEP including increased stride and balance challenges including coordinating contralateral limb movements while balancing and vestibular challenges. She did manage these well, did strongly recommend that she perform these 2x/ day x 10-20 reps each side until she returns. Check list given so she can rohan the grid to show she has done them 2x/ day. Patient states surprise at how fatigued she was after blocked ex practice though did demo signficantly better attention this date - prob partially due to having the gym to ourselves this date. Patient remains appropriate for skilled physical therapy to address ongoing deficits s/ p chronic stroke. Reiterated this date the need for ability to perform HEP consistently at home or gym in order to maximize function. Plan of Care Physical Therapy Goals 1) Pt demo I HEP and self care/home mgmt techniques for improved pain management and performance of independent ADLs including transfers and grooming. 2) Pt report pain <= 2/10 with ambulation >30 min IADL i.e. grocery or necessity shopping. 1) Pt demo ability to lift LE independently without hand assist when fatigued for entrance to vehicle, entrance/ exit from tub for grooming without substitution or fear of falling. 2) Pt demo gait pattern without antalgia, with equal stride lengths and demo appropriate hip, knee, and ankle motions. 3) Pt demo appropriate balance responses to decrease risk of falls with internal and external perturbations. 4) Pt demo ability to ascend/ descend steps without pain or failure to control eccentric motion for access to home laundry and shower. 5) Pt will demo 500' ambulation without limp and with best mechanics and balance to decrease risk of fall with community ambulation for things such as grocery shopping, participation in fitness activities. Daily Plan of Care Continue per POC Daily Plan of Care Comments Patient is appropriate for continued skilled physical therapy to consist of therapeutic exercise for functional strength, self fpc management and therapeutic activity to improve body mechanics with transfers, lifting and pain management techniques, neuromuscular re-education to improve posture, balance and use of neuromuscular system, manual therapy to improve tissue and joint mobility to restore proper movement and reduce pain, and gait training with none or most appropriate assistive device for most efficient and safest gait techniques. Other interventions to be performed as deemed appropriate. Advancement of home program performed as appropriate for patient's needs and abilities. Recertification Information Initial Certification Date 05/09/24 Recertification Start Date 08/16/24 Recertification Due Date 11/13/24 Reasons to Continue Skilled Therapy no falls, improving gait and balance, monitoring compliance with home situation. improved mobility after session Rehabilitation Potential fair to good Continued Plan of Care and Interventions ther ex, thera activity for reaching, lifting, pushing pulling, meal prep, pans in/ out of oven; neuromuscular shavon for balance and proprioception, vestibular habitulatio, gait, and strength. MT prn for arm pain Provider Signature Shows Agreement With POC & Medical Necessity Physician Comment/Change Comment or Changes Physician NPI Number #
== END 2024-12-21 23:59 | disposition home or self-care (01) ==
PROVIDERS: PCP Emergency Medicine; Visit Provider Emergency Medicine
DX: I63.9 Cerebral infarction, unspecified (principal); R27.0 Ataxia, unspecified; R41.89 Other symptoms and signs involving cognitive functions and awareness; R44.9 Unspecified symptoms and signs involving general sensations and perceptions; R27.8 Other lack of coordination; Z51.89 Encounter for other specified aftercare
CPT/HCPCS: 97110; 97112; 97116; 97140; 97162; 97166; X5282

== ENCOUNTER 2024-10-18 13:35 | Outpatient (CLI) | payer MEDICARE, SELFPAY | END 2024-10-18 13:36 | disposition home or self-care (01) | LOC: RAD 13:36 | PROVIDERS: PCP Emergency Medicine; Visit Provider Emergency Medicine | DX: R93.1 Abnormal findings on diagnostic imaging of heart and coronary circulation (principal); I35.1 Nonrheumatic aortic (valve) insufficiency; R07.89 Other chest pain | CPT/HCPCS: 93306 ==

== ENCOUNTER 2025-01-29 11:28 | Outpatient (CLI) | payer MEDICARE, SELFPAY | END 2025-01-29 11:29 | disposition home or self-care (01) | LOC: NFLDREF 01-30 23:26 | PROVIDERS: PCP Emergency Medicine; Referring Provider Emergency Medicine; Visit Provider Emergency Medicine | DX: E11.9 Type 2 diabetes mellitus without complications (principal); E78.5 Hyperlipidemia, unspecified; E03.9 Hypothyroidism, unspecified; I10 Essential (primary) hypertension; N39.0 Urinary tract infection, site not specified | CPT/HCPCS: 80048; 80061; 82043; 82570; 84443 ==

== ENCOUNTER 2025-05-02 13:16 | Outpatient (CLI) | payer MEDICARE, SELFPAY | END 2025-05-02 13:17 | disposition home or self-care (01) | LOC: LKVREF 13:17 | PROVIDERS: PCP Emergency Medicine; Visit Provider Emergency Medicine | DX: I10 Essential (primary) hypertension (principal) | CPT/HCPCS: 80048 ==

== ENCOUNTER 2025-06-12 14:53 | Outpatient (CLI) | payer MEDICARE, SELFPAY ==
--- NOTE | 2025-06-12 15:20 | CRLHL7_ITS ---
For Patients: As a result of the Century Cures Act, medical imaging exams and procedure reports are released immediately into your electronic medical record. You may view this report before your referring provider. If you have questions, please contact your health care provider. INDICATION: BILATERAL SCREENING MAMMOGRAM, ASYMPTOMATIC 79 Y/O FEMALE COMPARISON: 02/23/2024, 10/23/2022, 05/13/2021 TECHNIQUE: Digital mammogram in CC and MLO projections including computer-aided detection (CAD) and tomosynthesis. BREAST COMPOSITION: The breasts are almost entirely fatty. FINDINGS: No suspicious findings. ASSESSMENT: BI-RADS 1 Negative RECOMMENDATION: Annual screening mammogram. A lay language report of this examination will be provided to the patient. Dictated by: Demetrius Rodriguez MD @ 06/13/2025 11:48:23 (Electronically Signed)
== END 2025-06-12 14:54 | disposition home or self-care (01) ==
LOC: MAMMO 14:54
PROVIDERS: PCP Emergency Medicine; Visit Provider Emergency Medicine
DX: Z12.31 Encounter for screening mammogram for malignant neoplasm of breast (principal)
CPT/HCPCS: 77063; 77067

== ENCOUNTER 2025-07-30 15:23 | Outpatient (CLI) | payer MEDICARE, SELFPAY | END 2025-07-30 15:24 | disposition home or self-care (01) | LOC: LKVREF 15:23 | PROVIDERS: PCP Physician Assistant Medical; Visit Provider Physician Assistant Medical | DX: E11.9 Type 2 diabetes mellitus without complications (principal) | CPT/HCPCS: 82607 ==